=== PATIENT | male | born 1990 | race Caucasian/White ===

== ENCOUNTER 2020-07-09 03:20 | Outpatient (CLI) | payer OTHER, SELFPAY ==
[2020-07-10 14:30] LABS: COVID-19 RT-PCR UVMMC Result Negative (Negative)
== END 2020-07-09 03:21 | disposition home or self-care (01) ==
LOC: LBO 03:21
PROVIDERS: PCP Nurse Practitioner Family; Visit Provider Nurse Practitioner Family
DX: Z20.822 Contact with and (suspected) exposure to COVID-19 (principal)
CPT/HCPCS: U0003

== ENCOUNTER 2020-11-14 17:03 | Outpatient (REF) | payer OTHER, SELFPAY ==
[2020-11-16 14:39] LABS: COVID-19 RT-PCR UVMMC Result Negative (Negative)
== END 2020-11-14 17:04 | disposition home or self-care (01) ==
LOC: NCHCN 17:03
PROVIDERS: PCP Nurse Practitioner Family; Visit Provider Nurse Practitioner Family
DX: Z20.822 Contact with and (suspected) exposure to COVID-19 (principal); J06.9 Acute upper respiratory infection, unspecified
CPT/HCPCS: U0003

== ENCOUNTER 2020-11-14 17:29 | Emergency (ER) | payer OTHER, SELFPAY ==
[2020-11-14 17:36] VITALS: BP 137/88; PULSE 90; RESP 18; TEMP 37.1; O2SAT 98
--- NOTE | 2020-11-14 18:04 | DI.RAD_ITS ---
Exam(s) XR PORTABLE CHEST AP EXAM: XR PORTABLE CHEST AP CLINICAL HISTORY: cough, pui. TECHNIQUE: 2D digital imaging was performed. COMPARISON: No exams were available for comparison FINDINGS: Heart size is normal. The mediastinum is not widened. Lungs are clear. No infiltrates nor obvious pleural effusions. IMPRESSION: No acute pulmonary findings on this single AP portable view of the chest. DATA REPOSITORY: RADIATION DOSE DELIVERED: All CT scans at this facility use at least one of these dose optimization techniques: automated exposure control; mA and/or kV adjustment per patient size (includes targeted e xams where dose is matched to clinical indication); or iterative reconstruction.
--- NOTE | 2020-11-14 18:21 | DI.VRAD_ITS ---
PROCEDURE INFORMATION: Exam: XR Chest Exam date and time: 11/14/2020 5:39 PM Age: 30 years old Clinical indication: Cough TECHNIQUE: Imaging protocol: XR of the chest. Views: 1 view. COMPARISON: No relevant prior studies available. FINDINGS: Lungs: Unremarkable. No consolidation. Pleural spaces: Unremarkable. No pleural effusion. No pneumothorax. Heart/Mediastinum: Unremarkable. No cardiomegaly. Bones/joints: Unremarkable. IMPRESSION: No acute findings. Dictated and Authenticated by: Yo Miller MD. Ordering:BJ Frederick MD
--- NOTE | 2020-11-14 18:27 | ED.GENADUL_ITS ---
Discharge Plan Disposition Patient Disposition: HOME Condition: Stable Discharge Details Clinical Impression: URI (upper respiratory infection), Asthma Primary Care Provider: Nisha Preston ED Provider: Otoniel Ceballos Home Meds and New Rx's Prescriptions: No Action No Known Home Meds RF: 0 Discharge Instructions Instructions: Albuterol (By breathing), Asthma (ED), Upper Respiratory Infection (ED) Additional Instructions: Please use albuterol inhaler 2 puffs every 4 hours as needed for wheeze or shortness of breath. Take prednisone as prescribed, your next dose is tomorrow. Maintain quarantine until your Covid test is negative. Please contact your primary care physician to arrange follow-up. Return to the ER for any worsening or new concerning symptoms. Referrals: Nisha Preston [Primary Care Provider] - Medical Decision Making 30-year-old male here with cough and shortness of breath of the past couple days. Patient was seen in [facility] and received albuterol neb and prednisone 60 mg and is feeling better. He still has mild wheeze. Patient is saturating well in no respiratory distress. Suspect reactive airway disease with new onset asthma related to recent exposure to find particulate from [employer] in combination with an upper respiratory tract infection. Patient was sent here from [facility] for chest x-ray. Chest x-ray was reviewed and interpreted by me and there is no signs of pneumonia, radiology interprets as no acute findings. Patient was provided albuterol inhaler and spacer as pharmacy is currently closed. He was instructed to take prednisone as prescribed for tomorrow. He was instructed to follow-up with his primary care physician and maintain quarantine until his Covid testing is negative. Covid testing was performed at [facility]. Usual customary discharge instructions otherwise reviewed with patient. HPI General Mode of arrival: ambulatory . Date/Time Provider Initiated Documentation: 11/14/20 17:38 . Limitations to Documentation: no limitations . Information obtained by: patient . HPI Narrative: 30-year-old male sent from [facility] for chest x-ray. Patient presented to [facility] with shortness of breath and cough. Patient notes he has had cough for the past couple days and has had chest tightness with shortness of breath today. He denies associated fever. Patient received albuterol nebs and 60 mg of prednisone at [facility]. He notes he is feeling much better. Patient has no history of asthma but he does note familial history. Patient works outside and notes he has been exposed to their pollution with recent fine particular from [place]. Patient is vaccinated fully against Covid. No known Covid exposure. Related Data Home Medications Medication Instructions Recorded Confirmed Unknown [No Known Home Meds] 11/14/20 11/14/20 Allergies Allergy/AdvReac Type Severity Reaction Status Date / Time No Known Allergies Allergy Unverified 11/14/20 17:35 General Stated Complaint: RespSymp VIKKI: 4 Review of Systems All systems reviewed & are unremarkable except as noted in HPI and below Constitutional Constitutional: Denies fever(s) Respiratory Respiratory: Reports as per HPI [facility] Social History Smoking/Tobacco Use Status: Never Smoking risk assessment performed?: Yes Substance use type: does not use Do you feel safe at home: Yes Do you feel safe in your relationship?: Yes Exam Const General: cooperative and no acute distress HENMT Head: normocephalic and atraumatic Mouth: moist mucous membranes Eyes Conjunctivae: normal conjunctivae Sclera: normal sclerae Neck Neck: trachea midline and supple Resp Auscultation: no rales, rhonchi and wheezes expiratory wheezes (mild) Cardio Rate: regular rate and not tachycardic Rhythm: regular rhythm GI Palpation: soft, not firm, no guarding, no masses, not rigid and nontender Skin General skin exam: no rashes or lesions noted Neuro General: patient alert, patient awake, patient oriented x3 and tone normal Extrem General: no edema Psych Appearance: grossly normal Mental Status: mental status grossly normal Course Vital Signs Vital signs: Vital Signs Temperature 37.1 C 11/14/20 17:36 Pulse 90 11/14/20 17:36 Respiratory Rate 18 11/14/20 17:36 Blood Pressure 137/88 11/14/20 17:36 Pulse Oximetry 98 11/14/20 17:36 Temperature 37.1 C 11/14/20 17:36 Temperature Source Oral 11/14/20 17:36 Pulse 90 11/14/20 17:36 Respiratory Rate 18 11/14/20 17:36 Respiratory Effort 11/14/20 17:42 Blood Pressure 137/88 11/14/20 17:36 Pulse Oximetry 98 11/14/20 17:36 Oxygen Delivery Method Room Air 11/14/20 17:36 Oxygen Flow Rate 0 11/14/20 17:36 Pain Level 2 11/14/20 17:36 Comment 11/14/20 17:36
[2020-11-14] MEDS: Inhaler, Assist Device 1 EACH MC (18:38)
[2020-11-14] MEDS: Albuterol HFA 8 GM 60 PUFF INH IH (18:38)
== END 2020-11-14 18:38 | disposition home or self-care (01) ==
PROVIDERS: Emergency Provider Student in an Organized Health Care Education/Training Program; PCP Nurse Practitioner Family
DX: J06.9 Acute upper respiratory infection, unspecified (principal); J45.998 Other asthma
CPT/HCPCS: 99283; 71045

== ENCOUNTER 2023-01-24 16:14 | Emergency (ER) | payer OTHER, SELFPAY ==
--- NOTE | 2023-01-24 16:15 | DI.RAD_ITS ---
Exam(s) XR FINGER LT MIDDLE EXAM: XR FINGER LT MIDDLE EXAM DATE/TIME: CLINICAL HISTORY: Trauma. TECHNIQUE: 2D digital imaging was performed of the left finger. Three views were obtained. PA/AP, oblique, and lateral views were obtained. COMPARISON: None. FINDINGS: BONES: No acute fracture is present. No bony destructive lesion is seen. JOINTS: No dislocation is present. SOFT TISSUE: Normal. IMPRESSION: No evidence of acute fracture or dislocation. DATA REPOSITORY: RADIATION DOSE DELIVERED:
[2023-01-24 16:18] VITALS: BP 138/91; PULSE 75; RESP 18; TEMP 37; O2SAT 100
--- NOTE | 2023-01-24 16:28 | ED.GENADUL_ITS ---
Discharge Plan Disposition Patient Disposition: Home Condition: Stable Discharge Details Clinical Impression: Crush injury to finger Primary Care Provider: Unknown,Unknown ED Provider: Clarissa Minaya Home Meds and New Rx's Prescriptions: No Action No Known Home Meds Discharge Instructions Instructions: Crush Injury (ED) Additional Instructions: Keep dressing on. Tomorrow wash under running soap and water. Watch for signs of infection including increased redness swelling drainage or red streaks. Follow up with primary care provider in 3-5 days. Return to ED sooner if any worsening or concerns. Increase oral fluids. Please take Tylenol or Ibuprofen with food every 4-6 hours as needed for pain and swelling. Medical Decision Making 32 year old male presents to the ED with cc of left middle finger laceration and crush injury. Patient was feeding wood into a wood splitter and his finger cought caight in between two pieces of wood. Has a laceration noted to his nail possibly involving his nailbed. He does have distal CMS intact. No other injuries noted. Digital block performed for patient comfort for wound cleaning. Wound cleaned with chlorahexadine , Zeroform dressing applied and compression bandage. Bleeding controlled, discussed home care and patient given dressing supplies. This text was generated using [employer] dictation system, please disregard any oddities of phrase or misspellings. HPI General Mode of arrival: ambulatory . Date/Time Provider Initiated Documentation: 01/24/23 16:22 . Limitations to Documentation: no limitations . Information obtained by: patient, RN notes reviewed and old records reviewed . HPI Narrative: 32 year old male presents to the ED with cc of left middle finger laceration and crush injury. Patient was feeding wood into a wood splitter and his finger cought caight in between two pieces of wood. Has a laceration noted to his nail possibly involving his nailbed. He does have distal CMS intact. No other injuries noted. Related Data Home Medications Medication Instructions Recorded Confirmed Unknown [No Known Home Meds] 11/14/20 01/24/23 Allergies Allergy/AdvReac Type Severity Reaction Status Date / Time No Known Allergies Allergy Unverified 01/24/23 16:22 General Stated Complaint: Orthopedic VIKKI: 4 Review of Systems All systems reviewed & are unremarkable except as noted in HPI and below Integumentary/Breasts Skin/Breast: Reports as per HPI and Reports wounds (Left middle finger) PFSH All Active Problems (Updated 01/24/23 @ 17:16 by Clarissa Minaya NP) URI (upper respiratory infection) (Acute) Asthma (Chronic) Crush injury to finger (Acute) Social History Smoking/Tobacco Use Status: Never Smoking risk assessment performed?: Yes Drug use: Daily Substance use type: marijuana Do you feel safe at home: Yes Do you feel safe in your relationship?: Yes Exam Extrem Left upper extremity: hand Details: normal capillary refill, neurosensory exam normal and laceration 3rd digit dorsal aspect distal Details: irregular Hand/finger images: 1. Crush injury/laceration 2. Laceration left middle finger Course Vital Signs Vital signs: Vital Signs Temperature 37.0 C 01/24/23 16:18 Pulse 75 01/24/23 16:18 Respiratory Rate 18 01/24/23 16:18 Blood Pressure 138/91 H 01/24/23 16:18 Pulse Oximetry 100 01/24/23 16:18 Temperature 37.0 C 01/24/23 16:18 Pulse 75 01/24/23 16:18 Respiratory Rate 18 01/24/23 16:18 Respiratory Effort Normal 01/24/23 16:23 Blood Pressure 138/91 H 01/24/23 16:18 Blood Pressure Position Sitting 01/24/23 16:18 Pulse Oximetry 100 01/24/23 16:18 Oxygen Delivery Method Room Air 01/24/23 16:18 Oxygen Flow Rate 0 01/24/23 16:18 Pain Level 8 01/24/23 16:18 Procedures Nerve Block Nerve Block 1: Time out performed: No Local Anesthetic: Lidocaine 1% and Bupivicaine 0.5% Side: left Nerve Blocks: digital (4 sided ring block) Procedure Successful: Yes Patient Tolerated Procedure: well and no complications Complications: none PAWSS Have you Been Recently Intoxicated or Drunk Within the Last 30 days?: Yes Have you Ever Experienced Previous Episodes of Alcohol Withdrawal?: No Have you ever Experienced Withdrawal Seizures?: No Have you ever Experienced Delirium Tremens(DT)s?: No Have you ever undergone Alcohol Rehabilitation Treatment (i.e, inpt ot outpatient treatment programs)?: No Have you ever Experienced Blackouts?: No Have you ever Combined Alcohol with other Downers within the last 90 days?: No Have you ever Combined Alcohol with any other Substance of Abuse during the last 90 days?: Yes Result: 3
--- NOTE | 2023-01-24 17:13 | DI.VRAD_ITS ---
PROCEDURE INFORMATION: Exam: XR Left Finger(s) Exam date and time: 01/24/2023 4:45 PM Age: 32 years old Clinical indication: Other: Trauma TECHNIQUE: Imaging protocol: Radiologic exam of the left fingers. Views: Minimum 2 views. COMPARISON: US SOFT TISSUE EXTREMITY 07/31/2021 7:43 AM FINDINGS: Bones/joints: Normal. Soft tissues: Normal. IMPRESSION: No acute findings. Dictated and Authenticated by: Sathya Mckinney MD. Ordering:MIGNON Romo MD
== END 2023-01-24 17:32 | disposition home or self-care (01) ==
PROVIDERS: Emergency Provider Registered Nurse Emergency
DX: S67.193A Crushing injury of left middle finger, initial encounter (principal); S61.313A Laceration without foreign body of left middle finger with damage to nail, initial encounter; W23.0XXA Caught, crushed, jammed, or pinched between moving objects, initial encounter; Y93.89 Activity, other specified; Y92.89 Other specified places as the place of occurrence of the external cause; Y99.9 Unspecified external cause status; Z23 Encounter for immunization
CPT/HCPCS: 90472; 99283; 73140

== ENCOUNTER 2023-05-13 16:28 | Outpatient (REF) | payer OTHER, SELFPAY ==
[2023-05-13 15:33] LABS: ALT 33 U/L (16-63); AST 37 U/L (15-37); Albumin 4.2 g/dL (3.4-5.0); Alkaline Phosphatase 60 U/L (46-116); Anion Gap 8.9 mmol/L (3-11); BUN 16 mg/dL (7-18); Bilirubin, Total 0.6 mg/dL (0.2-1.0); CO2 30.1 mmol/L (21.0-32.0); CREATININE 0.9 mg/dL (0.70-1.30); Calcium 8.9 mg/dL (8.5-10.1); Chloride 102 mmol/L (98-107); Cholesterol 148 mg/dL (<200); Estimated GFR 117.83 (mL/min/1.73m2); Glucose 93 mg/dL (74-106); HDL Cholesterol 85 mg/dL (40-60); Potassium 4.3 mmol/L (3.5-5.1); Sodium 141 mmol/L (136-145); Total Protein 7.6 g/dL (6.4-8.2)
[2023-05-13 15:34] LABS: Triglyceride <25 mg/dL (<150)
[2023-05-13 16:14] LABS: LDL CHOLESTEROL 54 mg/dL (<100)
[2023-05-14 09:08] LABS: Hepatitis C Ab w Rflx HCV PCR Negative (Negative)
[2023-05-14 09:17] LABS: HIV-1/2 Ag & Ab Screen Negative (Negative)
== END 2023-05-13 16:29 | disposition home or self-care (01) ==
LOC: NCHCN 16:28
PROVIDERS: Visit Provider Nurse Practitioner Family
DX: Z00.00 Encounter for general adult medical examination without abnormal findings (principal); Z13.220 Encounter for screening for lipoid disorders; Z11.4 Encounter for screening for human immunodeficiency virus [HIV]; Z11.59 Encounter for screening for other viral diseases; Z13.228 Encounter for screening for other metabolic disorders
CPT/HCPCS: 80053; 80061; 83721; 86803; 87389

== ENCOUNTER 2024-01-03 12:04 | Emergency (ER) | payer OTHER, SELFPAY ==
[2024-01-03 12:05] VITALS: BP 133/83; PULSE 79; RESP 16; TEMP 36.7; O2SAT 98
--- NOTE | 2024-01-03 13:21 | ED.GENADUL_ITS ---
Discharge Plan Disposition Patient Disposition: Home Condition: Stable Discharge Details Chief Complaint: Laceration Clinical Impression: Laceration of left index finger, Contact with chainsaw as cause of accidental injury Primary Care Provider: Unknown,Unknown ED Provider: Otoniel Ceballos Home Meds and New Rx's Prescriptions: No Action No Known Home Meds Discharge Instructions Instructions: Laceration Repair With Stitches ED Additional Instructions: Please take ibuprofen over the counter. Take 600mg by mouth every 6 hours as needed for pain. Keep splint intact for the next few days. Sutures will need to be removed in 12 to 14 days. Please follow-up with your doctor return to the Emergency Department for suture removal. Change dressing daily and monitor for signs of infection including increased redness, warmth, drainage, pain. Return to the ER immediately for any worsening or new concerning symptoms. HPI General Mode of arrival: ambulatory . Date/Time Provider Initiated Documentation: 01/03/24 12:05 . Limitations to Documentation: no limitations . Information obtained by: patient . HPI Narrative: 33-year-old male presents with chief complaint of finger laceration. Patient notes he was using his chainsaw and accidentally sawed through his glove into his left second digit. Wound has been bleeding. Bleeding improved with pressure. He did wash the room prior to arrival. Tetanus up-to-date. Related Data Home Medications ?Medication ?Instructions ?Recorded ?Confirmed Unknown [No Known Home Meds] 11/14/20 01/03/24 Allergies Allergy/AdvReac Type Severity Reaction Status Date / Time No Known Allergies Allergy Unverified 01/03/24 12:08 General Stated Complaint: Laceration VIKKI: 4 Review of Systems Integumentary/Breasts Skin/Breast: Reports as per HPI Exam Skin Trauma: laceration (Left second digit dorsal 3 cm) Neuro Other: Distal left second digit sensation intact to light touch and to point discrimination Extrem Left upper extremity: hand Details: neuromotor exam normal, neurosensory exam normal, tendon exam normal and normal ROM of fingers Course Vital Signs Vital signs: Vital Signs Temperature 36.7 C 01/03/24 12:05 Pulse 79 01/03/24 12:05 Respiratory Rate 16 01/03/24 12:05 Blood Pressure 133/83 01/03/24 12:05 Pulse Oximetry 98 01/03/24 12:05 Temperature 36.7 C 01/03/24 12:05 Pulse 79 01/03/24 12:05 Respiratory Rate 16 01/03/24 12:05 Respiratory Effort Normal 01/03/24 12:09 Blood Pressure 133/83 01/03/24 12:05 Pulse Oximetry 98 01/03/24 12:05 Oxygen Delivery Method Room Air 01/03/24 12:05 Oxygen Flow Rate 0 01/03/24 12:05 Pain Level 2 01/03/24 12:05 Procedures Laceration Laceration 1: Site: hand Side (If applicable): left Size (cm): 3 Description: linear and irregular Depth: simple, single layer Local anesthetic: Lidocaine 2% Pre-repair: wound explored, irrigated extensively and deep structures intact Skin layer closed with: other (prolene) Size (cm): 5-0 Number of sutures: 7 Technique: simple, interrupted Nerve Block Nerve Block 1: Time out performed: Yes Local Anesthetic: Lidocaine 2% Amount of anesthesia used (mL): 5 Side: left Nerve Blocks: digital Procedure Successful: Yes Patient Tolerated Procedure: well and no complications Complications: none Medical Decision Making 33-year-old male here with accidental chainsaw injury resulting in laceration to his dorsal left second digit. Patient neurologically intact distal to injury. Tetanus immunization up-to-date last booster 2022. Digital block of the left second digit was performed after verbal consent provided. Primary closure of the wound was performed. Hemostasis achieved and wound borders well-approximated. Sterile dressing was applied to the wound. Volar splint applied. Usual and customary discharge instructions were reviewed. Quality:[facility] Health Related Social Needs: No Data to Display [facility] All Active Problems (Updated 01/03/24 @ 13:25 by Otoniel Ceballos MD) Contact with chainsaw as cause of accidental injury (Acute) Laceration of left index finger (Acute) Asthma (Chronic) URI (upper respiratory infection) (Acute) Social History Smoking/Tobacco Use Status: Never Smoking risk assessment performed?: Yes Drug use: Daily Substance use type: marijuana Housing: house Do you feel safe at home: Yes Do you feel safe in your relationship?: Yes
[2024-01-03 13:31] VITALS: BP 133/83; PULSE 70; RESP 16; TEMP 36.7; O2SAT 98
[2024-01-03] MEDS: Lidocaine/Epinephri/Tetracaine Topical Gel 3 ML TP (13:33)
== END 2024-01-03 13:33 | disposition home or self-care (01) ==
PROVIDERS: Emergency Provider Student in an Organized Health Care Education/Training Program
DX: S61.211A Laceration without foreign body of left index finger without damage to nail, initial encounter (principal); W29.3XXA Contact with powered garden and outdoor hand tools and machinery, initial encounter
CPT/HCPCS: 12002

== ENCOUNTER 2024-06-04 09:47 | Emergency (ER) | payer OTHER, SELFPAY ==
[2024-06-04 09:51] VITALS: BP 142/103; PULSE 76; RESP 14; TEMP 36.3; O2SAT 100
--- NOTE | 2024-06-04 10:05 | ED.GENADUL_ITS ---
Discharge Plan Disposition Patient Disposition: Home Condition: Stable Discharge Details Clinical Impression: Acute right otitis media Primary Care Provider: Unknown,Unknown ED Provider: Clarissa Minaya Home Meds and New Rx's Prescriptions: New amoxicillin-pot clavulanate 875-125 mg tablet 1 tab PO BID 7 Days Qty: 14 0RF Discharge Instructions Instructions: Ear Infection ED Additional Instructions: Take the antibiotics as prescribed with yogurt or probiotic. Please take Tylenol or Ibuprofen with food every 4-6 hours as needed for pain and swelling. Follow up with primary care provider in 3-5 days. Return to ED sooner if any worsening or concerns. Negative rapid swab for flu and COVID at this time. Referrals: Primary Care Provider [Outside] - 1 week Discharge Data Discharge Date/Time-TO BE ENTERED AT DEPARTURE: 06/04/24 10:56 HPI General Mode of arrival: ambulatory . Date/Time Provider Initiated Documentation: 06/04/24 09:58 . Limitations to Documentation: no limitations . Information obtained by: patient, RN notes reviewed and old records reviewed . HPI Narrative: 33-year-old male presents to the ER with chief complaint of right ear pain which began this morning. He also notes URI type symptoms for the last week. He does have a mild expiratory wheeze on the left lower lobe. Pain radiates to his right jaw. He does have erythema noted on exam to his right TM left TM is within normal limits. Posterior oropharynx slightly erythemic no exudate noted. Related Data Home Medications ?Medication ?Instructions ?Recorded ?Confirmed amoxicillin 875 mg-potassium 1 tab PO BID 7 days #14 tabs 06/04/24 clavulanate 125 mg tablet Previous Rx's ?Medication ?Instructions ?Recorded amoxicillin 875 mg-potassium 1 tab PO BID 7 days #14 tabs 06/04/24 clavulanate 125 mg tablet Allergies Allergy/AdvReac Type Severity Reaction Status Date / Time No Known Allergies Allergy Unverified 06/04/24 09:57 General Stated Complaint: EarProblem VIKKI: 4 Review of Systems All systems reviewed & are unremarkable except as noted in HPI and below ENT Ears, Nose, Mouth, and Throat: Reports as per HPI and Reports otalgia Exam Narrative Exam Narrative: Constitutional: Alert and oriented x3. Appears stated age. Normal body habitus. Head: Normocephalic, no trauma. Eyes: Pupils PERRL, Red reflex noted, EOM's intact. Eyelids symmetrical without lesions, discharge, or swelling. ENT: Right TM erythemic, left within normal limits external ear normal to inspection, no mastoid TTP, swelling, or erythema, Nasal turbinates WNL, no nasal discharge. Normal dentition, Posterior pharynx mildly erythemic,, no exudate. Chest: RRR, Normal S1, S2, distal pulses intact. Resp: Lungs clear to auscultation bilaterally, no rales, or rhonchi. Mild expiratory wheeze left side, Course Vital Signs Vital signs: Vital Signs Temperature 36.3 C L 06/04/24 09:51 Pulse 76 06/04/24 09:51 Respiratory Rate 14 06/04/24 09:51 Blood Pressure 142/103 H 06/04/24 09:51 Pulse Oximetry 100 06/04/24 09:51 Temperature 36.3 C L 06/04/24 09:51 Temperature Source Tympanic 06/04/24 09:51 Pulse 76 06/04/24 09:51 Respiratory Rate 14 06/04/24 09:51 Blood Pressure 142/103 H 06/04/24 09:51 Blood Pressure Position Sitting 06/04/24 09:51 Pulse Oximetry 100 06/04/24 09:51 Oxygen Delivery Method Room Air 06/04/24 09:51 Oxygen Flow Rate 0 06/04/24 09:51 Pain Level 7 06/04/24 09:51 Comment constant pressure 06/04/24 09:51 Medical Decision Making 33-year-old male presents to the ER with chief complaint of right ear pain which began this morning. He also notes URI type symptoms for the last week. He does have a mild expiratory wheeze on the left lower lobe. Pain radiates to his right jaw. He does have erythema noted on exam to his right TM left TM is within normal limits. Rapid flu and COVID swab ordered, Augmentin and ibuprofen. Right otitis media, negative rapid flu and COVID swab. Patient discharged with antibiotic, instructed take Tylenol ibuprofen and follow-up with PCP if needed. This text was generated using [employer] system, please disregard any oddities of phrase or misspellings. Quality:SDOH Health Related Social Needs: No Data to Display PFSH All Active Problems (Updated 06/04/24 @ 10:26 by Clarissa Minaya NP) Acute right otitis media (Acute) Asthma (Chronic) URI (upper respiratory infection) (Acute) Social History Smoking/Tobacco Use Status: Never Smoking risk assessment performed?: Yes Alcohol Intake: current Alcohol Intake frequency: 3 or more drinks per day Alcohol type: beer Drug use: Daily Substance use type: marijuana Housing: house Do you feel safe at home: Yes Do you feel safe in your relationship?: Yes PAWSS Have you Been Recently Intoxicated or Drunk Within the Last 30 days?: Yes Have you Ever Experienced Previous Episodes of Alcohol Withdrawal?: No Have you ever Experienced Withdrawal Seizures?: No Have you ever Experienced Delirium Tremens(DT)s?: No Have you ever undergone Alcohol Rehabilitation Treatment (i.e, inpt ot outpatient treatment programs)?: No Have you ever Experienced Blackouts?: No Have you ever Combined Alcohol with other Downers within the last 90 days?: No Have you ever Combined Alcohol with any other Substance of Abuse during the last 90 days?: No Positive Blood Alcohol level on Presentation? [PCS.BAL]: Unable to Obtain Evidence of Increased Autonomic Activity (i.e. HR>120, tremor, sweating, agitation, nausea)?: No Result: 1
[2024-06-04 10:10] VITALS: BP 142/103; PULSE 76; RESP 14; TEMP 36.3; O2SAT 100
[2024-06-04] MEDS: Amoxicillin 875/Clav. 125 TAB PO (10:20)
[2024-06-04] MEDS: Ibuprofen 600 MG TAB PO (10:20)
--- OUTSIDE RECORDS SUMMARY | 2024-06-04 10:37 | XMS_ITS | Encounter Summary ---
Author Organization [facility] Address [address] [place] [address] Care Team Providers Care Modeling Director Name Role Phone Ruiz Morley MD Primary Care Provider Un available Reason for Visit * Reason Comments Hand Pain right 3rd finger doi /dos 7.13.10 Encounter Details Date Type Department Care Team (Late st Contact Info) Description 07/08/2010 13:30 EDT Office Visit [facility] Upper Extrem[facility] [place] [address] Lottie Maravilla MD [address] [place] [id number] Amputation finger (Primary Dx) Social History Tobacco Use Types Packs/Day Years Used Date Smoking Tobacco: Never Alcohol Use Standard Drinks/Week Comments No 0 (1 standard drink = 0.6 oz pur e alcohol) Sex and Gender Information Value Date Recorded Sex Assigned at Not on file Legal Sex Male 18:48 EST Gender Identity Not on file Sexual Orientation Not on file documented as of this encounter Last Filed Vital Signs Vital Sign Reading Time Taken Comments Blood Pressure - - Pulse - - Temperature - - Respiratory Rate - - Oxygen Saturation - - Inhaled Oxygen Concentration - - Weight 74.8 kg (165 lb) 07/08/2010 1336 EDT Height 177.8 cm (5' 10) 07/08/2010 1336 EDT Body Mass Index 23.68 07/08/2010 1336 EDT Body Mass Index Percentile 70.92% 07/08/2010 133 6 EDT Growth Chart: CDC (Boys, 2-2 0 Years) documented in this encounter Progress Notes * Lottie Maravilla MD - 08/03/2010 1719 EDT This office note has been dictated. 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 HISTORY OF PRESENT ILLNESS: Daryl is a pleasant 20-year-old male accompanied on today's visit with both his parents for evaluation of his right long finger. He was referred to me by physician's patient clerical assistant, Charlie Parisi, who has followed him since the time of his initial injury on October 30, 2009. Gerriinapparently caught his right long finger in a wood splitter. He was treated with a revision amputation in the emergency room. He was doing well until 06/12/2010 when he returned back to the physician'sassistant for reevaluation of his right long finger. He had noted that he had a remnant of nail, which had begun to grow back, as well as pain over the tip of his distal finger with any type of prolon ged pressure, more on the radial side than the ulnar. In addition, he endorses cold intolerance when directly asked about it. He denies any paresthesias. He reports that he is able to function and use the hand with all activities. He completed a DASH questionnaire today, which demonstrated no difficulty with the majority of his functional activities; however, he endorses mild difficulty carrying any heavy object over 10 pounds, using a knife to cut food or some recreational activities due to the tenderness over the tip of his finger. He denies any infection or erythema. He presents to determine what if anything can be done to resolve his residual nail spike and to address his residual tender ness. PAST MEDICAL AND SURGICAL HISTORY: Negative for chronic disease. Notable for the emergency room revision amputation in 10/2009 following injury with a wood splitter. SOCIAL HISTORY: The patient states that he is Senior in high school. He lives with both his parents. He denies any alcohol or tobacco use. CURRENT MEDICATIONS: Denies. ALLERGIES: No known drug allergies. The patient denies any latex or environmental allergens. REVIEW OF SYSTEMS: A complete 12-point review of systems was obtained on the new patient self-assessment form. This form was reviewed with the patient. It was previously scanned in the medical recordand is dated October 2009. It is otherwise noncontributory. FAMILY HISTORY: Notable for arthritis. OBJECTIVE: Daryl is a well-appearing, 20-year-old male in no apparent distress. He is alert and oriented x4 with appropriate affect throughout the course of the examination. He is accompanied on today's visit with both his parents. Vital signs on today's visit show a weight of 165 pounds, height of70 inches and a BMI of 23.6. He has a pain score of 0/10. He is able to ambulate without a need for assistive device or evidence of gait deviation. He has full pain-free active range of motion of thecervical spine with no midline tenderness to palpation. He has full pain-free active range of motion of bilateral shoulders, elbows, wrists and left hand. Focal examination of the patient's right hand demonstrates a long finger amputation. The skin is well healed. He does have a nail spike remnant on the radial aspect of the long finger. This is somewhat tender to palpation. In addition, he does have focal tenderness to palpation over the very pad. There is a negative Tinel's with percussion toeither the radial or ulnar neurovascular bundles. There is no erythema around the nail spike or thepad of the finger. The incision line is well healed and mobile. The very tip of the finger; however, does have limited pad over it and it is clear that it is likely that with some fat atrophy, which has occurred in the area, this could lead to pressure on the underlying bone. There is no evidence of a dog ear. Sensation is grossly intact to the tip of the finger. The patient reports that this is approximately 80% of that, which is to that compared to light touch of his surrounding digits, which are unaffected from injury. He has a thumb, which he is able to oppose to the base of his small finger. He is able to oppose all digits including his long finger to the pad of his finger with a complete director of restaurants. IMAGING: X-rays of the patient's right long finger were obtained on 06/12/2010. This image was reviewed. There is no evidence of osteomyelitis. There is evidence of amputation of the distal phalanx. The middle phalanx had been cut at the level of the condyles. These are somewhat square with the possibility of tenderness arising from the edge of the middle phalanx bone. There is no evidence of softtissue swelling. The PIP joint and MCP joints are unaffected and appear normal in alignment and appearance. IMPRESSION AND PLAN: 1. Nail spike, right long finger distal amputation site. 2. Squared middle phalanx on radiographic imaging, which may be contributing to tenderness over thetip of the long finger. A long discussion was held with Mr Lawrence regarding his injury and radiographic as well as physical examination today. I think it is reasonable based on his goals and tenderness to plan for surgicalexcision of the nail spike. In addition, given the radiographic images of his middle phalanx it is quite possible that this squaring of the middle phalanx may be causing some tenderness to palpation.I expressed to the patient that his cold intolerance would not be addressed with surgical intervention and likely as sequela from the nerve injury, which was incurred at the time of his amputation. Nate not believe that his symptoms are consistent with a neuroma based on a negative Tinel's on either of the neurovascular bundles and his absence to paresthesias. Daryl expressed that he is interested in a summer job. We discussed appropriate timing of intervention and necessary rehabilitation and healing time. I feel that based upon his interest we will try to accommodate him as soon as possibleprior to his summer work schedule. All questions were answered and Daryl and his family are in agreement with the above plan. I will have him meet with the receptionist scheduler today to find a time which is mutually convenient. Electronically Signed by Lottie Maravilla MD 08/28/2010 07:25 Lottie Maravilla MD - Lottie Maravilla MD - Job ID: SM Doc ID: [id number] Ext Doc ID: [id number] cc: MD Charlie Rice PA-C documented in this encounter Care Teams Modeling Director Relationship Specialty Start Date End Date Ruiz Morley MD PCP - General 07/19/09 documented as of this encounter
--- OUTSIDE RECORDS SUMMARY | 2024-06-04 10:37 | XMS_ITS | Encounter Summary ---
Author Organization [facility] Address [address] [place] [address] Care Team Providers Care Laborer [employer]crete [employer] Name Role Phone Ruiz Morley MD Primary Care Provider Un available Encounter Details Date Type Department Care Team (Late st Contact Info) Description 05/13/2023 Lab Requisition [facility] Pathology & Laboratory Medicine - [address] [address] Outr Resulting Lab, Provider Social History Tobacco Use Types Packs/Day Years Used Date Smoking Tobacco: Never Alcohol Use Standard Drinks/Week Comments No 0 (1 standard drink = 0.6 oz pur e alcohol) Sex and Gender Information Value Date Recorded Sex Assigned at Not on file Legal Sex Male 18:48 EST Gender Identity Not on file Sexual Orientation Not on file documented as of this encounter Plan of Treatment Not on file documented as of this encounter Procedures Procedure Name Priority Date/Time Associated Diagnosis Comments HIV 1/2 ANTIGEN AND ANTIBODY, 4TH GENERATION Routine 05/13/2023 11:15 EST documented in this encounter Results * HIV 1/2 ANTIGEN AND ANTIBODY, 4TH GENERATION (05/13/2023 11:15 EST) HIV 1 and 2 Antibody/p24 Antigen, 4th Generation Negative Negative 05/14/2023 9:11 EST [facility] Comment:If acute HIV-1 infec tion is suspected in a high risk patient, submit plasma specimen for HIV-1 RNA quantitation test. Blood VENOUS BLOOD / Unknown 05/13/2023 11:15 EST 05/13/2023 21:21 EST Narrative [facility] - 05/14/2023 9:11 EST Fourth Generation assay performed on the [employer] XPT. us Provider Outr Resulting Lab IMMUNOLOGY AND SEROL OGY ORDERABLES Final Result [facility] [address] [place] [address] documented in this encounter Visit Diagnoses Not on filedocumented in this encounter Care Teams Laborer Concrete Plant Relationship Specialty Start Date End Date Ruiz Morley MD PCP - General 07/19/09 documented as of this encounter
--- OUTSIDE RECORDS SUMMARY | 2024-06-04 10:37 | XMS_ITS | Clinical Summary ---
Author Organization [facility] Address [address] [place] [address] Care Team Providers Care Physical Therapy Assistant Instructor Name Role Phone Ruiz Morley MD Primary Care Provider Un available Allergies No known active allergies Medications IBUPROFEN (ADVIL ORAL) Take by mouth as needed. Active Active Problems Problem Noted Date Diagnosed Date Traumatic amputation of othe r finger(s) (complete) (partial), without mention of complication 01/09/2010 Family History Medical History Relation Comments Anesthesia Problem Neg Hx Broken Bones Neg Hx Cancer Neg Hx Clotting Disorder Neg Hx Collagen Disease Neg Hx Diabetes Neg Hx Dislocations Neg Hx Osteoporosis Neg Hx Rheumatologic Disease Neg Hx Scoliosis Neg Hx Severe Sprains Neg Hx Social History Tobacco Use Types Packs/Day Years Used Date Smoking Tobacco: Never Alcohol Use Standard Drinks/Week Comments No 0 (1 standard drink = 0.6 oz pur e alcohol) Sex and Gender Information Value Date Recorded Sex Assigned at Not on file Legal Sex Male 18:48 EST Gender Identity Not on file Sexual Orientation Not on file Obstetrics History Last Filed Vital Signs Vital Sign Reading Time Taken Comments Blood Pressure 115/71 10/30/2009 1249 EDT Pulse 64 10/30/2009 1249 EDT Temperature 36 ??C (96.8 ??F) 10/30/2009 1249 EDT Respiratory Rate 16 10/30/2009 1249 EDT Oxygen Saturation 98% 10/30/2009 1249 EDT Inhaled Oxygen Concentration - - Weight 74.8 kg (165 lb) 07/08/2011 1324 EDT Height 180.3 cm (5' 11) 07/08/2011 1324 EDT Body Mass Index 23.01 07/08/2011 1324 EDT Plan of Treatment Health Maintenance Due Date Last Done Comments Hepatitis B Vaccine (1 of 3 - 19+ 3-dose series) 06/23 COVID-19 Vaccine (2023- season) 2023 Hepatitis C Screen Completed 05/13/2023 Procedures Procedure Name Priority Date/Time Associated Diagnosis Comments HEPATITIS C AB W REFLEX TO HCV RNA BY PCR Routine 05/13/2023 11:15 EST from Last 3 Months or Most Recently Relevant to Health Maintenance Results * HEPATITIS C AB W REFLEX TO HCV RNA BY PCR (05/13/2023 11:15 EST) Hep C Antibody Negative Negative 05/14/2023 9:03 EST [facility] Blood VENOUS BLOOD / Unknown 05/13/2023 11:15 EST 05/13/2023 21:21 EST us Provider Outr Resulting Lab CHEMISTRY & BLOOD GA S ORDERABLES Final Result [facility] [address] [place] [address] from Last 3 Months or Most Recently Relevant to Health Maintenance Insurance [facility] Care Teams Physical Therapy Assistant Instructor Relationship Specialty Start Date End Date Ruiz Morley MD PCP - General 07/19/09
--- OUTSIDE RECORDS SUMMARY | 2024-06-04 10:37 | XMS_ITS | Encounter Summary ---
Author Organization [facility] Address [address] [place] [address] Care Team Providers Care Hearing Specialist Name Role Phone Ruiz Morley MD Primary Care Provider Un available Reason for Visit * Reason Onset Date Comments Appointment Related 02/21/2011 Encounter Details Date Type Department Care Team (Late st Contact Info) Description 02/21/2011 Telephone [facility] Hand & Upper Extremity Program - [address] [place], [place] [id number] Katya Valverde LPN [address] [place] [address] Appointment Related Social History Tobacco Use Types Packs/Day Years Used Date Smoking Tobacco: Never Alcohol Use Standard Drinks/Week Comments No 0 (1 standard drink = 0.6 oz pur e alcohol) Sex and Gender Information Value Date Recorded Sex Assigned at Not on file Legal Sex Male 18:48 EST Gender Identity Not on file Sexual Orientation Not on file documented as of this encounter Miscellaneous Notes * Telephone Encounter - Katya Valverde LPN - 02/21/2011 1344 EDT Patient Education Topic: pre / post op care for amputation revision rt long finger Method: Handout and Verbal Taught to: Patient/Parents Barriers: None Outcomes: independent and verbalized understanding Signature:Katya Valverde LPN * Telephone Encounter - Katya Valverde LPN - 02/21/2011 1343 EDT [address] PATIENTS OF [address] ZBIGNIEW MARAVILLA Date of Surgery: 04/09/11 ?? [address] [address] Lora,the assembler surgical garment, will call you the day before surgery to let you know the time of your surgery and your arrival time. Any questions for her ,please call [phone] Pre-operative Phone Interview with Anesthesia Nurse: 04/07/11 @ 1-3 pm If changes in scheduling are needed call [phone] appointment [address] Maravilla or her associate 04/23/11 @ 10:00 At [address] [facility] Occupational/Hand Therapy appointment: To follow if needed [facility] To Prepare For Surgery A complete history and physical must be done with in 30 days prior to your surgery date. This physical can be done by your Primary Care provider or his/her associate. An EKG is part of this physical for males age 45 and above, and females age 55 and above. Refrain from taking the follow medications for 5-7 days before your surgery: Anti-Coagulants such as Plavix, Coumadin, Warfarin, Lovenox.Also anti- inflammatories, either prescription or over the counter,such as Aspirin, Advil, Aleve, Motrin, Ibuprofen, Naprosyn, Relafen,Mobic etc.These medications are safe to take: Celebrex and Tylenol. Shower or bathe the night before and again on the morning of your surgery with an antibacterial soap, since this practice can decrease your risk of an infection. Wear casual, comfortable, loose clothing such as sweat suits, easy button shirts or blouses. Remove all makeup and nail divehi.Bring an eyeglass case or contact lens case if you wear corrective lenses. Please leave all valuables, money and jewelry at home. Remove all rings Please call your surgeon's office Toll free @[phone] or [phone] pre-op services at [phone] with any questions or if you become ill before surgery, or develop a blemish, cut, rash or abrasion on or around your Surgical area. Pre-anesthetic Fasting Before Surgery Instructions Do not eat solid food or drink liquids containing fats,including milk, after midnight before your procedure day. You may have the following fat free,clear liquids until 2 hours prior to your scheduled time you are to arrive at the hospital. Clear liquids include: Water Apple or Cranberry juice Popsicles Jell-O Tammy jaciel Fat Free broth Black or sweetened coffee or tea. Take your medications as directed.If a medication must be taken with something other than fat free liquids or sips of water, please refer to the Preoperative Center at for guidance.These guide lines have been created with your safety in mind. Failure to comply with them may result incancellation of surgery or a delay on the day of surgery. More information is available at the [facility] web site ( [email or web address]). WHAT TO EXPECT AN OUTPATIENT SURGICAL PATIENT [facility]'s Outpatient Surgery program is a service offered to those patients in the community who require minor surgical treatment which can be safely completed in one day's time, therefore not requiring overnight hospitalization. The service permits the patient to have surgery and to go home the same day. In order to make your stay as short and as comfortable as possible, this instruction sheet has beenprepared for your convenience. The instructions contained in this document are important to ensure a safe surgical procedure and early discharge home. When you arrive for surgery Please arrive at [facility] per the time specified by your physician's office. Thiswill allow us adequate time to prepare you for your surgery. Single patients under the age of 18 MUST have a parent or legal guardian in the hospital at ALL times on the day of surgery, from the time of admission until discharge either home or to an inpatient bed.In order to coordinate your care, please ensure your ride expects to arrive a half hour before your expected discharge time. Arrange for a responsible adult to go home with you and to stay with you overnight. After registering in Admitting, you will be sent to the Surgical Admission area where you will be prepared for your surgery. You will change into a hospital gown or pajamas. Your health status will be updated and an IV (intravenous fluid) will be started. If an intravenous is needed on a child, it will be started in the operating room after the child isasleep. You will meet one of the anesthesia staff who will be with you during your surgery. They will ask you some questions and finalize your anesthesia plan of care. You will be moved into the operating room on a stretcher. A designated family waiting area is staffed by a inner tube tuber machine operator who will take your family's name as they enter. Your surgeon may them after your surgery. Please note that there is limited waiting area and we recommend only one or two family members accompany the patient . After your surgery - recovery You will be transferred to the Post Anesthesia Care Unit (PACU). When having outpatient surgery, most of the time you can go home between 1-4 hours after your surgery. Total recovery time varies fromprocedure to procedure. If you require extended recovery time, you can expect to be moved to the Post Procedure Recovery Unit (PPR) until your physician and nurse have determined that it is safe for you to go home If your physician determines that you require additional observation or a longer time to recover, you will be admitted and moved to an inpatient unit overnight. When this occurs, depending on the type of surgery you have, the hospital will bill your insurance as an outpatient subject to the benefits in your insurance plan. Adult parents or significant others are appropriate visitors in that PACU as visitation is limited to ensure safe quality care. Please try and make suitable arrangements for children under the age of18 during the post operative waiting period for their safety and comfort All patients must leave the hospital accompanied by a responsible adult truck driver supervisor after anesthesia or sedation. For the first 24 hour period after receiving sedation or anesthesia, you should NOT make important decisions, drive, operate machinery, or drink alcohol. Note: In some cases you may be sent home but directed to follow up in the doctor's office within a day or two. If you live locally, this should not be a problem. However, if you live further away, you may be asked to make arrangements for motel/hotel accommodations in the [facility]. You can find lodging information on www.[employer].org under the Patients and Visitors tab/Visitor's guide/Community .Information/Hotel, Motel & Lodging. POST OPERATIVE CARE AT HOME Keep your dressing/splint clean, dry and intact until you return to the office for your first visit. Swelling is expected in the arm/hand upon which you had surgery. To help relieve swelling, elevate the extremity, apply cold/ice, and use an over the counter anti-inflammatory as directed on the label such as Ibuprofen, Advil, or Aleve. Bleeding on your dressing after surgery may be normal and is no cause for alarm. Old blood will appear brownish in color. Call our office if you have active bleeding, this will be a bright red spot continually increasing in size. You will be given a prescription for a narcotics pain reliever to manage your pain during the immediate post operative period of 2-4 weeks. These medications can have side effects that include but are not limited to nausea, dizziness, sedation, insomnia, and constipation. Anticipating these temporary side effects will better enable you to better manage them. Always take your medicine with food and maintain an adequate fluid intake. If you are not able to manage/tolerate these side effects, callour office. PLEASE keep in mind that you are required to have a written prescription to take to the pharmacy tohave narcotic medication given to you, these cannot be called in. If you live out of town and/or out of state you'll need to plan in advance for someone to come to the office to get a prescription for any refills you may require to meet your pain control needs. There are 4 things you need to check a couple of times a day: Color - There is frequently bruising associated with fractures or surgery. The color associated with bruising usually black and blue and later on greenish- yellow and it may spread out as time passes.This is entirely normal. Sensation - When you have surgery you may be given a nerve block by Anesthesia or be given a local block at the site of surgery by the surgeon. This block makes your arm/hand feel numb and heavy. This sensation can last for several hours or as long as 24 - 72 hours after surgery. This is normal. Asthe block wears off, you should be able to feel your arm/hand. They should no longer feel tingly ornumb. If the numbness/tingling persist this may be due to swelling. Motion - You should be able to wiggle your fingers (if you have been instructed to do so). If you cannot, please call the office. Temperature - The temperature of operative limb, as measured by touch, should be similar to the non-operative limb. It may be cooler related to nonuse but shouldn't be significantly colder than the unaffected limb. Call our office if you have concern.Call our office if you have a fever of 102 or above. This is a copy of the consent for you will sign the day of surgery with the anesthesiologist. I give it to you at this time so you can read it at your leisure. I understand that: I need to consider anesthesia care for myself or the above named patient. The type of anesthesia to be recommended will depend upon the procedure, and the physical and psychological condition of the patient Anesthesia is a medical service which manages patients before, during, and after a procedure. Patients are rendered unconscious or with diminished response to pain and stress during the course of a medical, surgical, or obstetrical procedure. Conditions may require implementation of anesthetic or monitoring techniques not necessarily discussed, but necessary for the patient's benefit and well-being, including placement of catheters in large blood vessels, epidural catheters in the spine for pain control, nerve blocks, cardiopulmonary life support, and blood or blood product transfusions. In addition to the anesthesiologist whose name appears on this document, the anesthetic care may beprovided by other anesthesiologists with hospital staff privileges or, acting under the direct supervision of the anesthesiologist, by certified registered nurse anesthetists, and to a more limited extent by the nurses, and medical personnel trainees. There is the possibility of unforeseen occurrences and no guarantees have been made as to the result of the anesthetic. Types of Anesthesia and Definitions General Anesthesia:is the provision of intravenous (IV) or inhalational (gaseous) anesthetic medications as deemed necessary to provide managed loss of consciousness and insensibility to pain. At a minimum, in addition to monitoring devices, a mask on the face or on the larynx (voice box) or a tubein the trachea (wind pipe) will be utilized. Regional Anesthesia and Analgesia:is suitable for some operations and other painful conditions. Anesthetics and other medications are injected into the spinal or epidural space, or other locations toprovide loss of or reduced sensation in a specific area of the body and may be supplemented by local anesthesia, sedation, or general anesthesia as deemed necessary to provide adequate comfort These techniques may be continued into the postoperative period for the purpose of controlling or diminishing the anticipated discomfort normally associated with a surgical procedure. Monitored Anesthesia Care (MAC):is the monitoring and possible treatment of at least blood pressure, blood oxygen level, heart rate, and mental state using supplementing sedation and analgesia as well as other medications, as needed to provide comfort and safety. This type of care is typically implemented in conjunction with surgeon administered local anesthesia. Local Anesthesia: Local anesthesia is usually done by the operating physician, where anesthetizing agents are injected of infiltrated into a small area of the body, for example the surgical site. Topical Anesthesia. Surface anesthesia is produced by direct application of anesthetizing agents onskin or mucous membranes. Fortunately, anesthesia care is safe for the general population. To be complete, however, please review the following: Risk and Complications may include but are not limited to: allergic/adverse drug reaction, lung aspiration of stomach contents, backache, dental injury, injury or demise, headache, heart attack, inability to reverse the effects of anesthesia as planned, infection, injection of substance into an unintended site, localized swelling and/or redness, lung injury, muscle aches, nausea or vomiting, opthalmic (eye) injury, pain, pneumonia, nerve injury, recall of sound/noise/speech, seizures, sore throat, and inadequacy of the prescribed anesthetic necessitating a change in treatment On extremely rare occasions, brain damage, coma, paralysis, stroke, or may result. I understand that alternative therapeutic choices, with varying risks, including no anesthesia, maybe available. Special techniques such as hypothermic arrest, hypotensive anesthesia, lumbar fluid drainage, or dilutional anemia recommended by the surgeon or anesthesiologist may be implemented for the benefit of the patient. I have been given the opportunity to ask questions about anesthesia and feel that I have sufficientinformation to give this informed consent. If I refuse to accept any recommendation or treatment bythe anesthesiologist, it is noted below. I agree to anesthesia care and specifically to the anesthesia care prescribed to me by the painter assistant/anesthesiologist for my surgical procedure excepting. My consent will continue in effect unless withdrawn. If you have any questions and would like to discuss your anesthesia care please call the Departmentof Anesthesia at [phone] and you will be connected to an anesthesiologist or one will return your phone call. documented in this encounter Plan of Treatment Not on file documented as of this encounter Visit Diagnoses Not on filedocumented in this encounter Care Teams Hearing Specialist Relationship Specialty Start Date End Date Ruiz Morley MD PCP - General 07/19/09 documented as of this encounter
--- OUTSIDE RECORDS SUMMARY | 2024-06-04 10:37 | XMS_ITS | Encounter Summary ---
Author Organization [facility] Address [address] [place] [address] Care Team Providers Care Infrastructure Design Engineer Name Role Phone Ruiz Morley MD Primary Care Provider Un available Encounter Details Date Type Department Care Team (Late st Contact Info) Description 08/09/2010 Abstract [facility] Hand & Upper Extremity Program - [address] [place], [place] [id number] Lottie Maravilla MD [address] [place] [phone] Social History Tobacco Use Types Packs/Day Years [...] on filedocumented in this encounter Care Teams Infrastructure Design Engineer Relationship Specialty Start Date End Date Ruiz Morley MD PCP - General 07/19/09 documented as of this encounter
--- OUTSIDE RECORDS SUMMARY | 2024-06-04 10:37 | XMS_ITS | Encounter Summary ---
Author Organization [facility] Address [address] [place] [address] Care Team Providers Care Instrument Repairer Name Role Phone Ruiz Morley MD Primary Care Provider Un available Reason for Visit * Reason Comments Hand Injury right hand doi 7.1.2 010 Encounter Details Date Type Department Care Team (Late st Contact Info) Description 06/12/2010 10:45 EST Office Visit [facility] Hand & Upper Extremity Program [place] [address] Charlie Parisi PA [address] [place], [place] [address] Amputation finger (Primary Dx) Social History Tobacco [...] - Inhaled Oxygen Concentration - - Weight 72.6 kg (160 lb) 06/12/2010 1037 EST Height 172.7 cm (5' 8) 06/12/2010 1037 EST Body Mass Index 24.33 06/12/2010 1037 EST Body Mass Index Percentile 76.91% 06/12/2010 103 7 EST Growth Chart: CDC (Boys, 2-2 0 Years) documented in this encounter Progress Notes * Charlie Parisi - 07/01/2010 5641 EDT [facility] PROGRESS/FOLLOWUP NOTE - 06/12/2010 PROBLEM: Follow up right long finger amputation. SUBJECTIVE: Daryl is back today with some new complaints. He had amputated his long finger and his last visit with me was in November 2009. He was doing very well at that time. Therefore, we saw him back on a p.r.n. basis. He is here today with his parents and his sister. It was noted that he had a nail that he thought was starting to grow back and he has been trying to pull the nail off without much relief. He is also noticing that he gets pain over the tip of his finger with any heavy pressure,more so on the radial side than on the ulnar side. Overall, he complains of no abnormal nerve sensations or any signs of infection. He states he has been pulling on his nail remnant, but it has not tr ied to get infected, he states. OBJECTIVE: Daryl is alert and oriented x3. He is appropriate and in no distress. Examination of theright hand certainly does reveal that he has a nail remnant on the radial aspect of the long finger, which is somewhat tender to palpation. There is no erythema around the area but he does have a palpable area in this same region that is quite tender to palpation and it feels like it is directly over the bony stump. The scar itself is healing very well and there is no abnormal appearance such as a dog ear. He certainly does not have a positive Tinel's or any signs of a neuroma. He has excellentrange of motion of his finger, otherwise. DIAGNOSTIC DATA: We did order radiographs today of the right hand to assess the bony structures. Itappears that on the radial side of the stump he has a squared off bone and from anterior to posterior it is also square instead of nice and round. This may be causing some of his pain. ASSESSMENT: Pain and a nail remnant after amputation of right long finger. PLAN: We had a discussion today about possible surgical revision amputation and Daryl and his parents both want him to followthrough with this. We talked about getting him in with Dr Maravilla and discussed also removing his nail remnant. I do not think that he has a neuroma, but this could be addressed at the same time if it is discovered during surgery. With this in mind, I have set Daryl up to me et with Dr Maravilla in the near future. I will see Daryl, therefore, on a p.r.n. basis. Electronically Signed by Charlie Parisi PA-C 07/01/2010 14:51 Dictated by: Charlie Parisi PA-C - Charlie Parisi PA-C A - KINGA Job ID: SM Doc ID: [id number] Ext Doc ID: [id number] cc: * Charlie Parisi - 06/17/2010 1502 EST This office note has been dictated. documented in this encounter Plan of Treatment Not on file documented as of this encounter Procedures Procedure Name Priority Date/Time Associated Diagnosis Comments FINGER 2 OR MORE VIEWS Routine 06/12/2010 10:50 EST Amputation finger documented in this encounter Results * FINGER 2 OR MORE VIEWS (06/12/2010 10:50 EST) Anatomical Region Laterality Modality Other 06/12/2010 10:5 0 EST 06/14/2010 10:17 EST Narrative 06/14/2010 10:17 EST FINGER 2 OR MORE VIEWS ?? June 12, 2010 10:50:00 AM Clinical History/Comments: ??886.0-amputation finger-i9 ??Left long finger amputation with pain. Assess for possible bony changes. Findings: Two views of the right digit are obtained. Comparison is made to October 30, 2009, casted study with limited visualization of this digit. By history, there has been amputation of the distal aspect of this digit. Proximal phalanx has a normal appearance. The distal middle phalanx ??and the distal phalynx are absent. The soft tissue overlying this distal digit has a smooth a normal appearance without focal abnormality.. No periosteal thickening. No callus formation. Impression: Amputation of a right digit. Note.The clinical history and comments indicates left long finger amputation with pain. Images submitted for examination have been identified as the right digit. Procedure Note 06/14/2010 FINGER 2 OR MORE VIEWS June 12, 2010 10:50:00 AM Clinical History/Comments: 886.0-amputation finger-i9 Left long finger amputation with pain. Assess for possible bony changes. Findings: Two views of the right digit are obtained. Comparison is made to October 30, 2009, casted study with limited visualization of this digit. By history, there has been amputation of the distal aspect of this digit. Proximal phalanx has a normal appearance. The distal middle phalanx and the distal phalynx are absent. The soft tissue overlying this distal digit has a smooth a normal appearance without focal abnormality.. No periosteal thickening. No callus formation. Impression: Amputation of a right digit. Note.The clinical history and comments indicates left long finger amputation with pain. Images submitted for examination have been identified as the right digit. Charlie HAYNES IMG DIAGNOSTIC IMAGING ORDERABLE S Final Result documented in this encounter Visit Diagnoses Diagnosis Traumatic amputation of other finger(s) (complete) (partial), without mention of complication- Primary documented in this encounter Care Teams Instrument Repairer Relationship Specialty Start Date End Date Ruiz Morley MD PCP - General 07/19/09 documented as of this encounter
--- OUTSIDE RECORDS SUMMARY | 2024-06-04 10:37 | XMS_ITS | Encounter Summary ---
Author Organization [facility] Address [address] [place] [address] Care Team Providers Care Floating Operator Name Role Phone Ruiz Morley MD Primary Care Provider Un available Encounter Details Date Type Department Care Team (Late st Contact Info) Description 11/15/2020 Lab Requisition [facility] Pathology & Laboratory Medicine - [facility] [address] [place] [address] Outr Resulting Lab, Provider Social History Tobacco [...] Procedure Name Priority Date/Time Associated Diagnosis Comments ZZCOVID-19 TEST [facility] PCR Today 11/14/2020 16:30 EDT COVID-19 TESTING Routine 11/14/2020 16:3 0 EDT documented in this encounter Results * COVID-19 TEST [facility] PCR (11/14/2020 16:30 EDT) Swab ENTIRE NASOPHARYNX / Unknown 11/14/2020 16:30 EDT 11/15/2020 15:43 EDT us Provider Outr Resulting Lab MICROBIOLOGY - GENER AL ORDERABLES Final Result Performing Organization Address [facility] Co de Phone Number [facility] [address] [place] [address] * COVID-19 TESTING (11/14/2020 16:30 EDT) COVID-19 rt-PCR Result Negative Negative 11/16/2020 14:35 EDT [facility] Comment: This test has not been FDA cleared or approved. This test has been authorized by FDA under an EUA for use by authorized laboratories. This test has been authorized only for detection of nucleic acid from 2019-nCoV, not for any other viruses or pathogens. This test is only authorized for the duration of the declaration that circumstances exist justifying the authorization of emergency use of in vitro diagnostic tests for detection and/or diagnosis of 2019-nCoV under section 564(b)(1) of Act, 21 U.S.C ?? 360bbb-3(b) (1), unless the authorization is terminated or revoked sooner. Negative results do not preclude 2019-nCoV infection and should not be used as the sole basis for treatment or other patient management decisions. Negative results must be combined with clinical observations, patient history, and epidemiological information. Testing was performed using the jacklyn SARS-CoV-2 assay ([employer] on the Jacklyn 6800 System Performing Lab Jacklyn [address] [facility] Lab 11/16/2020 14:35 EDT [facility] Swab 11/14/2020 16:3 0 EDT 11/15/2020 15:43 EDT us Provider Outr Resulting Lab MICROBIOLOGY - GENER AL ORDERABLES Final Result Performing Organization Address [facility] Co de Phone Number [facility] [address] [place] [address] documented in this encounter Visit Diagnoses Not on filedocumented in this encounter Care Teams Floating Operator Relationship Specialty Start Date End Date Ruiz Morley MD PCP - General 07/19/09 documented as of this encounter
--- OUTSIDE RECORDS SUMMARY | 2024-06-04 10:37 | XMS_ITS | Encounter Summary ---
Author Organization [facility] Address [address] [place] [address] Care Team Providers Care Engineering Scientist Name Role Phone Ruiz Morley MD Primary Care Provider Un available Encounter Details Date Type Department Care Team (Late st Contact Info) Description 11/15/2009 Office Visit [facility] Hand & Upper Extremity Program - [address]ela [facility] [address] [place], [place] [id number] Charlie Parisi PA [address] [place] [address] Social History Tobacco Use Types Packs/Day Years Used Date Smoking Tobacco: Never Alcohol Use Standard Drinks/Week Comments No 0 (1 standard drink = 0.6 oz pur e alcohol) Sex and Gender Information Value Date Recorded Sex Assigned at Not on file Legal Sex Male 18:48 EST Gender Identity Not on file Sexual Orientation Not on file documented as of this encounter Progress Notes * Charlie Parisi - 01/01/2010 1511 EDT ORTHOPAEDICS AND REHABILITATION SERVICES PROGRESS/FOLLOWUP NOTE - 11/15/2009 PROBLEM: Right amputated ring finger. SUBJECTIVE: Daryl reports today with his mom and has no complaints. He has been using his right ring finger and has a bit of sensitivity on the tip. He has already been starting to work on massaging it, though. Overall, he is doing very well. OBJECTIVE: Daryl is alert and oriented x3, he is appropriate, in no distress. Examination of the right hand reveals that he has excellent extension and flexion of his digit. His stump is doing very well and rounding off nicely. He has no extreme hypersensitivity to palpation on the tip and his sensation and circulation is felt to be normal. He nearly can make a full fist with the limitations of DIP flexion. ASSESSMENT: Amputation of the right ring finger, doing very well. PLAN: Daryl is doing well enough now that if needed we will see him in 3 weeks or so, but if he needs to be sooner, he can call us. I think this will likely be his last visit though. Sutures were removed today as well. Electronically Signed by Charlie Parisi PA-C 01/01/2010 15:11 Dictated by: Charlie Parisi PA-C - Charlie Parisi PA-C A - CHERYL Job ID: SM Doc ID: [id number] Ext Doc ID: [id number] cc: documented in this encounter Plan of Treatment Not on file documented as of this encounter Visit Diagnoses Not on filedocumented in this encounter Care Teams Engineering Scientist Relationship Specialty Start Date End Date Ruiz Morley MD PCP - General 07/19/09 documented as of this encounter
--- OUTSIDE RECORDS SUMMARY | 2024-06-04 10:37 | XMS_ITS | Referral Summary ---
Author Organization [facility] Address [address] [place] [address] Care Team Providers Care Hide Cooking Operator Name Role Phone Ruiz Morley MD Primary Care Provider Un available Allergies No known active allergies Medications IBUPROFEN (ADVIL ORAL) Take by mouth as needed. Active Active Problems Problem Noted Date Diagnosed Date Traumatic amputation of othe r finger(s) (complete) (partial), without mention of complication 01/09/2010 Social History Tobacco Use Types Packs/Day Years Used Date Smoking Tobacco: Never Alcohol Use Standard Drinks/Week Comments No 0 (1 standard drink = 0.6 oz pur e alcohol) Sex and Gender Information Value Date Recorded Sex Assigned at Not on file Legal Sex Male 18:48 EST Gender Identity Not on file Sexual Orientation Not on file Last Filed Vital Signs Vital Sign Reading [...] 23.01 07/08/2011 1324 EDT Plan of Treatment Not on file Procedures Procedure Name Priority Date/Time Associated Diagnosis Comments HEPATITIS C AB W REFLEX TO HCV RNA BY PCR Routine 05/13/2023 11:15 EST from Last 3 Months or Most Recently Relevant to Health Maintenance Results * HEPATITIS C AB W REFLEX TO HCV RNA BY PCR (05/13/2023 11:15 EST) Hep C Antibody Negative Negative 05/14/2023 9:03 EST [facility] Blood VENOUS BLOOD / Unknown 05/13/2023 11:15 EST 05/13/2023 21:21 EST us Provider Outr Resulting Lab CHEMISTRY & BLOOD GA S ORDERABLES Final Result [facility] [address] [place] [address] from Last 3 Months or Most Recently Relevant to Health Maintenance Insurance [employer] [facility] Address: [facility] [id number] [place] [id number] Care Teams Hide Cooking Operator Relationship Specialty Start Date End Date Ruiz Morley MD PCP - General 07/19/09
--- OUTSIDE RECORDS SUMMARY | 2024-06-04 10:37 | XMS_ITS | Encounter Summary ---
Author Organization [facility] Address [address] [place] [address] Care Team Providers Care Balloon Design Printer Name Role Phone Ruiz Morley MD Primary Care Provider Un available Encounter Details Date Type Department Care Team (Late st Contact Info) Description 01/23/2023 Orders Only [facility] Reproductive Medicine & Infertility Center - [address] [id number] Teodora Bell MD [address] [facility], [address] [place] [address] Female infertility (Primary Dx) Social History Tobacco Use Types [...] as of this encounter Plan of Treatment Scheduled Orders Name Type Priority Associated Diagnoses Orde r Schedule POCT SEMEN ANALYSIS, COMPLETE Point of Care Testing Routine Female infertility Ordered: 01/23/2023 documented as of this encounter Visit Diagnoses Diagnosis Female infertility- Primary Female infertility of unspecified origin documented in this encounter Care Teams Balloon Design Printer Relationship Specialty Start Date End Date Ruiz Morley MD PCP - General 07/19/09 documented as of this encounter
--- OUTSIDE RECORDS SUMMARY | 2024-06-04 10:37 | XMS_ITS | Encounter Summary ---
Author Organization [facility] Address [address] [place] [address] Care Team Providers Care Data Mining Analyst Name Role Phone Ruiz Morley MD Primary Care Provider Un available Reason for Visit * Reason Onset Date Comments Procedure 02/21/2011 Encounter Details Date Type Department Care Team (Late st Contact Info) Description 02/21/2011 Pre-Procedure Orders Encounter [facility] Hand & Upper Extremity Program - [address] [place] [address] Katya Valverde LPN [address] [place] [address] Amputation finger Social History Tobacco Use Types Packs/Day Years [...] other finger(s) (complete) (partial), without mention of complication documented in this encounter Care Teams Data Mining Analyst Relationship Specialty Start Date End Date Ruiz Morley MD PCP - General 07/19/09 documented as of this encounter
--- OUTSIDE RECORDS SUMMARY | 2024-06-04 10:37 | XMS_ITS | Encounter Summary ---
Author Organization [facility] Address [address] [place] [address] Care Team Providers Care Pony Ride Attendant Name Role Phone Ruiz Morley MD Primary Care Provider Un available Encounter Details Date Type Department Care Team (Late st Contact Info) Description 05/13/2023 Lab Requisition [facility] Pathology & Laboratory Medicine - [address] [address] Outr Resulting Lab, Provider Social History Tobacco [...] RNA BY PCR Routine 05/13/2023 11:15 EST documented in this encounter Results * HEPATITIS C AB W REFLEX TO HCV RNA BY PCR (05/13/2023 11:15 EST) Hep C Antibody Negative Negative 05/14/2023 9:03 EST [facility] Blood VENOUS BLOOD / Unknown 05/13/2023 11:15 EST 05/13/2023 21:21 EST us Provider Outr Resulting Lab CHEMISTRY & BLOOD GA S ORDERABLES Final Result [facility] [address] [place] [address] documented in this encounter Visit Diagnoses Not on filedocumented in this encounter Care Teams Pony Ride Attendant Relationship Specialty Start Date End Date Ruiz Morley MD PCP - General 07/19/09 documented as of this encounter
--- OUTSIDE RECORDS SUMMARY | 2024-06-04 10:37 | XMS_ITS | Encounter Summary ---
Author Organization [facility] Address [address] [place] [address] Care Team Providers Care Narrow Fabrics Weaver Name Role Phone Ruiz Morley MD Primary Care Provider Un available Encounter Details Date Type Department Care Team (Late st Contact Info) Description 07/09/2020 Lab Requisition [facility] Pathology & Laboratory Medicine - [address] [address] Outr Resulting Lab, Provider Social History Tobacco [...] Comments ZZCOVID-19 TEST [facility] PCR Today 07/09/2020 8:48 EDT COVID-19 TESTING Routine 07/09/2020 8:48 EDT documented in this encounter Results * COVID-19 TEST [facility] PCR (07/09/2020 8:48 EDT) Swab ENTIRE NASOPHARYNX / Unknown 07/09/2020 8:48 EDT 07/09/2020 16:17 EDT us Provider Outr Resulting Lab MICROBIOLOGY - GENER AL ORDERABLES Final Result [facility] [address] [place] [address] * COVID-19 TESTING (07/09/2020 8:48 EDT) COVID-19 rt-PCR Result Negative Negative 07/10/2020 14:24 EDT [facility] Comment: This test has not [...] clinical observations, patient history, and epidemiological information. This test was developed and its performance characteristics determined by [facility]. It has not been cleared or approved by the US Food and Drug Administration. FDA does not require this test to go through premarket FDA review. This test is used for clinical purposes. It should not be regarded as investigational or for research. This laboratory is certified under the Clinical Laboratory Improvement Amendments (CLIA) as qualified to perform high complexity clinical laboratory testing. This test is based on the [facility] COVID-19 Emergency Use Authorization (EUA) assay, with minor modification as defined by the FDA Performed on the Tap 'n Tap 7 Pro RT-PCR System. Performing Lab [facility] Lab 07/10/2020 14:24 EDT [facility] Swab 07/09/2020 8:48 EDT 07/09/2020 16:17 EDT Provider Outr Resulting Lab MICROBIOLOGY - GENER AL ORDERABLES Final Result [facility] [address] [place] [address] documented in this encounter Visit Diagnoses Not on filedocumented in this encounter Care Teams Narrow Fabrics Weaver Relationship Specialty Start Date End Date Ruiz Morley MD PCP - General 07/19/09 documented as of this encounter
--- OUTSIDE RECORDS SUMMARY | 2024-06-04 10:37 | XMS_ITS | Encounter Summary ---
Author Organization [facility] Address [address] [place] [address] Care Team Providers Care Pricer Name Role Phone Ruiz Morley MD Primary Care Provider Un available Reason for Visit * Reason Comments Finger Injury Right ring finger DO I 10/30/09 Encounter Details Date Type Department Care Team (Late st Contact Info) Description 12/06/2009 14:00 EDT Office Visit [facility] Hand & Upper Extremity Program - [address] [facility] [place] [address] Charlie Parisi PA [address] [place] [address] Amputation, finger, traumatic (Primary Dx) Social History Tobacco Use Types [...] encounter Progress Notes * Charlie Parisi - 12/13/2009 1429 EDT ORTHOPAEDICS AND REHABILITATION SERVICES PROGRESS/FOLLOWUP NOTE - 12/06/2009 PROBLEM: Followup left long finger amputation. SUBJECTIVE: I am seeing Daryl today for followup. He has been doing very well. He relates to some sensitivity on the very tip of the right long finger that was amputated on 10/30/2009. OBJECTIVE: Daryl is alert and oriented x3. He is appropriate, in no distress. Examination of the right long finger reveals that his stump is healing very well and is starting to round off without anydog ear appearances. He has one small area where the skin is not completely healed, but there is noactive drainage or redness. His finger is neurovascularly intact and a bit hypersensitive on the volar ulnar aspect of the tip of the finger but it does not appear to be a dylan neuroma. He can flex the PIP from 0 to 95 degrees without difficulty and he can nearly make a full fist. ASSESSMENT: Right long finger amputation, doing well. PLAN: I think Daryl is doing well enough now that he can go to a fingertip protector made out of silicone. We have fitted this to him today in the office; it was supplied by our therapy department. We would then see him on a p.r.n. basis as he is doing so well. I also filled out paperwork today forhim to try to get a vinh gentile's permit. Electronically Signed by Charlie Parisi PA-C 12/13/2009 14:29 Dictated by: Charlie Parisi PA-C - Charlie Parisi PA-C P - WILLIAMG Job ID: SM Doc ID: [id number] Ext Doc ID: [id number] cc: * Charlie Parisi - 12/06/2009 1627 EDT Note dictated. documented in this encounter Plan of Treatment Not on file documented as of this encounter Visit Diagnoses Diagnosis Amputation, finger, traumatic- Primary Traumatic amputation of other finger(s) (complete) (partial), without mention of complication documented in this encounter Discontinued Medications Medication Sig Discontinue Reason Start Date End Da te cephALEXin (KEFLEX) 250 mg capsule Take 1 Cap by mouth 4 times daily. Patient Stopped Taking 10/30/2009 12/06/2009 hydrocodone-acetaminop hen (VICODIN) 5-500 mg per tablet Take 1 Tab by mouth every 4 hours as needed for Pain. Patient Stopped Taking 10/30/2009 12/06/2009 documented as of this encounter Care Teams Pricer Relationship Specialty Start Date End Date Ruiz Morley MD PCP - General 07/19/09 documented as of this encounter
--- OUTSIDE RECORDS SUMMARY | 2024-06-04 10:37 | XMS_ITS | Encounter Summary ---
Author Organization [facility] Address [address] [place] [address] Care Team Providers Care Engineering Administrator Name Role Phone Ruiz Morley MD Primary Care Provider Un available Encounter Details Date Type Department Care Team (Latest Contact Info) Description 01/09/2023 7:37 EDT - 01/09/2023 23:59 EDT Hospital Encounter [facility] Reproductive Medicine & Infertility Center - [facility] [address] [place] [address] Lab, E&I Discharge Disposition: Home or Self Care Social History Tobacco Use Types Packs/Day Years Used Date Smoking Tobacco: Never Alcohol Use Standard Drinks/Week Comments No 0 (1 standard drink = 0.6 oz pur e alcohol) Sex and Gender Information Value Date Recorded Sex Assigned at Not on file Legal Sex Male 18:48 EST Gender Identity Not on file Sexual Orientation Not on file documented as of this encounter Medications at Time of Discharge IBUPROFEN (ADVIL ORAL) Take by mouth as needed. documented as of this encounter Discharge Disposition Disposition Code Departure Means Destination Home or Self Care documented in this encounter Plan of Treatment Not on file documented as of this encounter Visit Diagnoses Not on filedocumented in this encounter Care Teams Engineering Administrator Relationship Specialty Start Date End Date Ruiz Morley MD PCP - General 07/19/09 documented as of this encounter
--- OUTSIDE RECORDS SUMMARY | 2024-06-04 10:37 | XMS_ITS | Encounter Summary ---
Author Organization [facility] Address [address] [place] [address] Care Team Providers Care Mold Cleaner Name Role Phone Ruiz Morley MD Primary Care Provider Un available Reason for Visit * Reason Comments Back Pain Encounter Details Date Type Department Care Team (Late st Contact Info) Description 07/08/2011 13:30 EDT Office Visit [facility] Spine Program - [address] [place] [address] Patrice Chi PA-C [address] [place] [address] [place] [address] Low back pain (Primary Dx) Social History Tobacco Use Types [...] Body Mass Index 23.01 07/08/2011 1324 EDT documented in this encounter Progress Notes * Patrice Chi PA - 07/08/2011 1356 EDT Since our last visit, Daryl had experienced intermittent episodes of low back pain. He can have episodes of pain that can last 3 to 4 days, or go for a week without symptoms. He has a very difficult job. 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 His last episode occurred one week ago and is quite uncomfortable. He and his father were a bit upsetso they decided to phone follow up with us and make an appointment. His symptoms come on randomly with bending, sometimes walking upstairs or other random events. He finds relief with lying down and sitting. He had seen a physical therapist for a couple of weeks, but he has found no real change in his symptoms. He has not seen a chiropractor, although he had in the past and only provided short-term relief. He has not had injections. Currently states 100% of his discomfort is focused in his back, no lower extremity symptoms, tingling or numbness. Objectively, radiographs of the lumbar spine dated November 2009 reveal endplate deformity at L4 superiorly, what looks like an apophyseal fracture with mild loss of disk space height at 3-4. Repeat films today, AP, lateral, flex-ex films reveal elevated iliac crest on the right. Lateral view revealsdiminished disk space height at 3-4 with persistent deformity in the superior endplate of L4, possibly an apophyseal fracture, no instability in flexion or extension. ASSESSMENT: A 21-year-old gentleman with back pain, likely musculoskeletal diskogenic, no signs of nerve root impingement. I noted that he should participate in daily activities as tolerated without limitation without fear of damaging himself, although he will have episodes of increased pain. Not clear that physical therapy or menagerie caretaker could make a big impact in his symptoms, and since menagerie caretaker is typically out of pocket I am not sure he could afford the investment. He and hisfather both felt much more comfortable after reviewing the x-rays and discussing his differential. My plan at this point would be to participate in daily activities as tolerated without limitation. If he has increased back pain or new lower extremity symptoms that last greater than 2 weeks, he is certainly welcome to phone follow up with us and I will schedule an appointment as needed. If he has leg symptoms we will order an MRI and follow up with him post. Otherwise, follow up p.r.n. I spent greater than 25 minutes, with 25 minutes of our time spent [id number] discussing symptoms, subjective complaints and reviewing his treatment options. documented in this encounter Plan of Treatment Not on file documented as of this encounter Procedures Procedure Name Priority Date/Time Associated Diagnosis Comments L SPINE 4 OR MORE VIEWS Routine 07/08/2011 13:46 EDT Low back pain documented in this encounter Results * L SPINE 4 OR MORE VIEWS (07/08/2011 13:46 EDT) Anatomical Region Laterality Modality Other 07/08/2011 13:4 6 EDT 07/08/2011 14:43 EDT Narrative 07/08/2011 14:43 EDT LUMBAR SPINE FOUR VIEWS July 08, 2011 Indication: Low back pain. Comparison: July 23, 2009. Technique: AP and lateral flexion, neutral and extension views of the lumbar spine were obtained. Findings: There is mild thoracolumbar levoscoliotic curvature convex at about L1. No jojo or retrolisthesis is appreciated in flexion, neutral or extension views. Vertebral body heights are preserved. There is mild disc space narrowing at L3-L4 with subtle endplate sclerosis, which is likely reactive and unchanged from the prior x-rays. Procedure Note 07/08/2011 LUMBAR SPINE FOUR VIEWS July 08, 2011 Indication: Low back pain. Comparison: July 23, 2009. Technique: AP and lateral flexion, neutral and extension views of the lumbar spine were obtained. Findings: There is mild thoracolumbar levoscoliotic curvature convex at about L1. No jojo or retrolisthesis is appreciated in flexion, neutral or extension views. Vertebral body heights are preserved. There is mild disc space narrowing at L3-L4 with subtle endplate sclerosis, which is likely reactive and unchanged from the prior x-rays. Patrice Hemond PA-C IMG DIAGNOSTIC IMAGING ORDERA BLES Final Result documented in this encounter Visit Diagnoses Diagnosis Low back pain- Primary Lumbago documented in this encounter Historical Medications * This list may reflect changes made after this encounter. IBUPROFEN (ADVIL ORAL) Take by mouth as needed. added in this encounter Care Teams Mold Cleaner Relationship Specialty Start Date End Date Ruiz Morley MD PCP - General 07/19/09 documented as of this encounter
--- OUTSIDE RECORDS SUMMARY | 2024-06-04 10:37 | XMS_ITS | Encounter Summary ---
Author Organization [facility] Address [address] [place] [address] Care Team Providers Care C D Area Supervisor Name Role Phone Ruiz Morley MD Primary Care Provider Un available Encounter Details Date Type Department Care Team (Late st Contact Info) Description 10/17/2022 Orders Only [facility] - [address] [phone] Perri Michelle MD [address] [facility], [address] [place] [address] Fertility testing (Primary Dx) Social History Tobacco Use Types [...] Procedure Name Priority Date/Time Associated Diagnosis Comments POCT SEMEN ANALYSIS, COMPLETE Routine 01/09/2023 8:11 EDT Fertility testing documented in this encounter Results * (ABNORMAL) POCT SEMEN ANALYSIS, COMPLETE (01/09/2023 8:11 EDT) Partner Princess Arnold [facility] POINT OF CARE Referring Provider [facility] Outside Request UV N POINT OF CARE Specimen Collected, POC In Clinic (Normal) [facility] POINT OF CARE Length of Sexual Abstinence, POC 2 Days [facility] POINT OF CARE Any Portion of Specimen Lost During Collection No No [facility] POIN T OF CARE Time Received 812 [facility] POINT OF CARE Received by CARY [facility] PO INT OF CARE Examined at 850 [facility] PO INT OF CARE Viscosity Normal viscosity Norm/Visco us [facility] POINT OF CARE pH 8.6 7.2 - 9.0 [facility] POIN T OF CARE Specimen Volume 2.2 >=1.5 ml [facility] N POINT OF CARE Sperm Count 66.3 >=15 M/ml [facility] PO INT OF CARE Total Sperm Count 145.8 >=39 Million [facility] POINT OF CARE Motility,POC 58 >=40 % [facility] P OINT OF CARE Motility, Speed of Progression(grade d),POC 2+ Slow Progression( L) = 4 (Rapid Progressio n) to 0 (immotile) [facility] POINT OF CARE Comment:30% undulating rapid progression; 60% slow progression; 10% non-progressive Total Motile Sperm 84.5 Million [facility] POINT OF CARE Sperm Clumping (non-motile) Absent Absent [facility] POINT OF CARE Agglutination (motile sperm) Absent Absent % [facility] POINT OF CARE Normal Forms 6 >=4 % [facility] P OINT OF CARE Comment:93% abnormal heads; 1% abnormal midpiece Round Cells 1 <5 M/ml [facility] PO INT OF CARE PMN'S (Leukocytes) [facility] POINT OF CARE Comments, POC SEMEN [facility] POINT OF CARE Electronic Signature Seth Swain, PhD, [facility] POINT OF CARE Semen ENTIRE PENIS / Unknown 01/09/2023 8:11 EDT Perri Michelle MD POINT OF CARE TEST ORDER SCHUYLER Final Result [facility] POINT OF CARE documented in this encounter Visit Diagnoses Diagnosis Fertility testing- Primary documented in this encounter Care Teams C D Area Supervisor Relationship Specialty Start Date End Date Ruiz Morley MD PCP - General 07/19/09 documented as of this encounter
--- OUTSIDE RECORDS SUMMARY | 2024-06-04 10:38 | XMS_ITS | Encounter Summary ---
Author Organization [facility] Address [address] [place] [address] Care Team Providers Care Painting Technician Name Role Phone Ruiz Morley MD Primary Care Provider Un available Reason for Visit * Reason Comments Finger Injury right middle finger injury doi 7.13.10 Encounter Details Date Type Department Care Team (Late st Contact Info) Description 11/15/2009 14:15 EDT Office Visit [facility] Hand [facility] Upper Extremity Program - [place] [facility] [place] [address] Charlie Parisi PA [address] [place] [address] Amputation finger (Primary Dx) Social History Tobacco [...] encounter Progress Notes * Charlie Parisi - 01/09/2010 1607 EDT This office note has been dictated. 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
--- OUTSIDE RECORDS SUMMARY | 2024-06-04 10:38 | XMS_ITS | Encounter Summary ---
[place] [address] Care Team Providers Care Journal Clerk Name Role Phone Lisa Greenwood APRN Primary Care Provider [phone] Reason for Referral * Consultation (Routine) - Closed Specialty Diagnoses / Procedures Referred By Juan Miguel morales Referred To Contact Obstetrics and Gynecology Diagnoses Infertility counseling PARTNER IS SAUD FLAVIO ([birth year]) Lisa Greenwood APRN [address] [place] [address] [facility] [employer] [address] Referral ID Status Reason Start Date Expiration Date V isits Requested Visits Authorized [id number] Closed Consult, Test & Treat PCP Updated and/or Approved 08/31/2022 08/31/2023 6 6 Encounter Details Date Type Department Care Team (Latest Contact Info) Description 08/31/2022 Transcribe Orders eDH Incoming Referrals [phone] Lisa Greenwood APRN [address] [place] [address] Infertility counseling Social History Tobacco Use Types Packs/Day Years Used Date Smoking Tobacco: Never Assessed Sex and Gender Information Value Date Recorded Sex Assigned at Not on file Gender Identity Not on file Sexual Orientation Not on file documented as of this encounter Plan of Treatment Scheduled Referrals Name Type Priority Associated Diagnoses Orde r Schedule Referral to Ob-Medical Insurance Coder Outpatient Referral Routine Infertility counseling Ordered: 08/31/2022 documented as of this encounter Visit Diagnoses Diagnosis Infertility counseling documented in this encounter Care Teams Journal Clerk Relationship Specialty Start Date End Date Lisa Greenwood, PUBLIC RELATIONS COORDINATOR [address] [place] [address] PCP - General Family Medicine 08/31/22 documented as of this encounter
--- OUTSIDE RECORDS SUMMARY | 2024-06-04 10:38 | XMS_ITS | Encounter Summary ---
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 Comments Will remove daily for wound checks and dressing changes. Discuss ROM of the digit as well. Reason for Visit * Reason Comments Finger Injury right middle finger injury partial amputation Encounter Details Date Type Department Care Team (Late st Contact Info) Description 11/06/2009 14:00 EDT Office Visit [facility] Hand & Upper Extremity Program - [address] [phone] Charlie Parisi PA [address] [place] [address] Amputation finger (Primary Dx) Social History Tobacco [...] Type Priority Associated Diagnoses Orde r Schedule AMB CONSULT HAND THERAPY Outpatient Referral Routine Amputation finger Ordered: 11/06/2009 documented as of this encounter Visit Diagnoses Diagnosis 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 HISTORY OF PRESENT ILLNESS: Daryl is seen today for an injury to his right long finger. He hurt it in a wood splitter on the October. He was treated in [facility] with revision amputation in the emergency performed by orthopedic residents. His pain initially was 10/10 but now is about a 2/10. He is taking pain medication for pain relief and he states Vicodin is helping. His mother states that his antibiotics were discontinued on the 5th day which would have been Thursday of this week. Patient states overall he gets tingling sensations on the tip of his finger if it is bumped. He has been in a very large splint for protection since revision amputation. PAST MEDICAL HISTORY: Is negative for chronic disease. SOCIAL HISTORY: Denies alcohol or tobacco use. FAMILY HISTORY: Positive for arthritis. PREVIOUS SURGERIES: None. MEDICATIONS: Ibuprofen and Vicodin. ALLERGIES: None. REVIEW OF SYSTEMS: Is documented in the patient's chart and reviewed prior to examination. OBJECTIVE: Daryl is alert and oriented x3, appropriate in no distress. Examination of the right long finger does show amputation near the distal interphalangeal joint. He has sutures which are intact. The nail has been removed. His range of motion was tested against blocking and he is able to flex the PIP and maybe a little bit of the DIP today. He is hypersensitive on the tip of his finger and has normal capillary refill. There are no signs of infection today. 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 PLAN: I would recommend that Daryl returns weekly until his sutures are ready to be removed. We will place him in a protective dressing today and have him report to therapy for a splint. They will begiven supplies to change his dressing at home either daily or every other day. We discussed signs of infection and they were told to call the office if they had any concerns. Once again I will see him in a week. Electronically Signed by Charlie Parisi PA-C 11/19/2009 13:11 Dictated by: Charlie Parisi PA-C - Charlie Parisi PA-C A - HAILE Job ID: Doc ID: [id number] Ext Doc ID: [id number] cc: documented in this encounter Care Teams Interior Assemblies Installer Relationship Specialty Start Date End Date Ruiz Morley MD PCP - General 07/19/09 documented as of this encounter
--- OUTSIDE RECORDS SUMMARY | 2024-06-04 10:38 | XMS_ITS | Encounter Summary ---
Author Organization [facility] Address [address] [place] [address] Care Team Providers Care Dog Or Horse Racing Official Name Role Phone Ruiz Morley MD Primary Care Provider Un available Encounter Details Date Type Department Care Team (Latest Contact Info) Description 11/06/2009 15:54 EDT - 11/06/2009 23:59 EDT Hospital Encounter [place] [facility] [place] [address] Charlie Parisi PA [address] [place] [address] Discharge Disposition: Home or Self Care Social [...] this encounter Medications at Time of Discharge cephALEXin (KEFLEX) 250 mg capsule Take 1 Cap by mouth 4 times daily. 20 Cap 0 10/30/2009 12/06/2009 hydrocodone-aceta minophen (VICODIN) 5-500 mg per tablet Take 1 Tab by mouth every 4 hours as needed for Pain. 15 Tab 0 10/30/2009 12/06/2009 documented as of this encounter Discharge Disposition Disposition Code Departure Means Destination Home or Self [facility] documented in this encounter Plan of Treatment Not on file documented as of this encounter Visit Diagnoses Not on filedocumented in this encounter Care Teams Dog Or Horse Racing Official Relationship Specialty Start Date End Date Ruiz Morley MD PCP - General 07/19/09 documented as of this encounter
--- OUTSIDE RECORDS SUMMARY | 2024-06-04 10:38 | XMS_ITS | Encounter Summary ---
Author Organization [facility] Address [address] [place] [address] Care Team Providers Care Cutter Finisher Name Role Phone Brian Martinez MD Primary Care Provider Un available Reason for Visit * Reason Comments Hand Injury fingers vs. wood spl itter. R middle here for ORTHO consult Encounter Details Date Type Department Care Team (Late st Contact Info) Description 10/30/2009 12:39 EDT - 10/30/2009 16:58 EDT Emergency [facility] Emergency Department - [facility] [address] [place] [address] Zane Daley MD [address] [facility], Level [address] [place] [phone] Jac Murrieta MD [address] [place] [phone] Amputation, finger, traumatic Discharge Disposition: Home or Self Care Social [...] EDT Inhaled Oxygen Concentration - - Weight 72.6 kg (160 lb) 10/30/2009 1249 EDT Height - - Body Mass Index - - documented in this encounter Discharge Instructions * Discharge Instructions* Zane Daley MD - 10/30/2009 16:27 EDT Discharge instructions as per orthopedic surgery Followup in the orthopedic hand clinic in 5-7 days Medications as instructed Return if symptoms worsen or new symptoms develop * Attachments The following attachments cannot be sent through Care Everywhere. * FINGERTIP AMPUTATION: AFTER YOUR VISIT TO THE EMERGENCY ROOM ([facility]) documented in this encounter Medications at Time of Discharge cephALEXin (KEFLEX) 250 mg capsule Take 1 Cap by mouth 4 times daily. 20 Cap 0 10/30/2009 12/06/2009 hydrocodone-aceta minophen (VICODIN) 5-500 mg per tablet Take 1 Tab by mouth every 4 hours as needed for Pain. 15 Tab 0 10/30/2009 12/06/2009 documented as of this encounter Ordered Prescriptions Prescription Sig Dispense Quantity Refills Last Filled Start Date End Date hydrocodone-acetam inophen (VICODIN) 5-500 mg per tablet Take 1 Tab by mouth every 4 hours as needed for Pain. 15 Tab 0 10/30/2009 12/06/2009 cephALEXin (KEFLEX) 250 mg capsule Take 1 Cap by mouth 4 times daily. 20 Cap 0 10/30/2009 12/06/2009 documented in this encounter Discharge Disposition Disposition Code Departure Means Destination Comment s Home or Self Care Car Home father up to pharmacy to fill prescriptions documented in this encounter ED Notes * Ajay Ybarra, RN - 10/30/2009 1612 EDT Ortho completed repair to finger. Placed in plaster splint * Ajay Ybarra RN - 10/30/2009 1422 EDT Ortho at bedside attending to finger inj * Zane Daley MD - 10/30/2009 2179 EDT DOS: 10/30/2009 Chief Complaint Patient presents with ??? Hand Injury fingers vs. wood splitter. R middle here for ORTHO consult The patient is a 19 y.o. male who presents today with Hand Injury The history is provided by the patient and a parent. Hand Injury The incident occurred 3 to 5 hours ago. The incident occurred at home. The injury mechanism was a direct blow (wood splitter). The pain is present in the right fingers (right middle finger). The painquality is described as throbbing. The pain is severe. The pain has been constant since the incident. Pertinent negatives include no fever and no malaise/fatigue. It is unknown if a foreign body is present. The symptoms are worsened by palpation, use and movement. He has tried immobilization and ice for the symptoms. The treatment provided moderate relief. Review of Systems Constitutional: Negative for fever, chills, malaise/fatigue, diaphoresis and fatigue. HENT: Negative for nosebleeds, rhinorrhea, neck pain, neck stiffness and ear discharge. Eyes: Negative for photophobia and visual disturbance. Respiratory: Negative for chest tightness and shortness of breath. Cardiovascular: Negative for chest pain and palpitations. Gastrointestinal: Negative for nausea, vomiting, abdominal pain and diarrhea. Genitourinary: Negative for dysuria, urgency and frequency. Musculoskeletal: Negative for back pain. Painful right middle finger Skin: Positive for wound (amputation of distal right middle finger). Negative for rash. Neurological: Negative for tremors, syncope and headaches. Hematological: Does not bruise/bleed easily. Psychiatric/Behavioral: Negative for confusion. All other systems reviewed and are negative. No past medical history on file. No past surgical history on file. No Known Allergies History Substance Use Topics ??? Tobacco Use: Not on file ??? Alcohol Use: Not on file Denies cigarette or alcohol No family history on file. Vital Signs Temp: 36 ??C (96.8 ??F) Temp src: Tympanic Pulse: 64 Resp: 16 SpO2: 98 % BP: 115/71 mmHg Physical Exam Nursing note and vitals reviewed. Constitutional: He appears well-developed and well-nourished. No distress. HENT: Head: Normocephalic and atraumatic. Nose: Nose normal. Mouth/Throat: Oropharynx is clear and moist. Eyes: Conjunctivae and extraocular motions are normal. Pupils are equal, round, and reactive to light. Right eye exhibits no discharge. Left eye exhibits no discharge. Neck: Normal range of motion. Neck supple. No tracheal deviation present. Cardiovascular: Normal rate, regular rhythm, normal heart sounds and intact distal pulses. Pulmonary/Chest: Effort normal and breath sounds normal. No respiratory distress. He has no wheezes. Abdominal: Soft. Bowel sounds are normal. No tenderness. Musculoskeletal: Normal range of motion. She presents with an amputation of his right middle finger at the DIP joint Exposed bone is present Neurological: He is alert. He has normal strength. He is not disoriented. No sensory deficit. Skin: Skin is warm and dry. No rash noted. Psychiatric: He has a normal mood and affect. Radiology orders: OUTSIDE CD - PLAIN FILM MSK HAND 3 OR MORE VIEWS OUTSIDE CD - PLAIN FILM MSK (Results Pending) HAND 2 VIEWS (Results Pending) HAND 3 OR MORE VIEWS (Results Pending) Procedures ED Course: The patient is a 19-year-old male who presents from an outside hospital following an injury with a wood splitter. He would split her has amputated his right middle finger at the DIP joint. There is exposed bone present. Patient's history with intravenous antibiotics intravenous pain medicine at an outside hospital prior to sending him to the ER. The patient now presents for further evaluation andtreatment. Orthopedic surgery consulted. Finger repair was performed by orthopedic plastic surgery coordinator X-ray reviewed Patient discharged home with oral antibiotics and oral pain medicine. He will follow up in the handclinic in 5-7 days to return is symptoms worsen or new symptoms develop. Discharge Prescriptions New Prescriptions CEPHALEXIN (KEFLEX) 250 MG CAPSULE Take 1 Cap by mouth 4 times daily. HYDROCODONE-ACETAMINOPHEN (VICODIN) 5-500 MG PER TABLET Take 1 Tab by mouth every 4 hours as neededfor Pain. MDM Number of Diagnoses and Management Options Amputation, finger, traumatic: new, needed workup Amount and/or Complexity of Data Reviewed Tests in the radiology section of CPT??: reviewed Discuss the patient with other providers: yes (Orthopedic surgery consult) Independent visualization of images, tracings, or specimens: yes (X-ray) Risk of Complications, Morbidity, and/or Mortality Presenting problems: high Diagnostic procedures: moderate Management options: moderate General comments: 4 Patient Progress Patient progress: improved Encounter Diagnoses Code Name Primary? Qualifier ??? 886.0H Amputation, finger, traumatic Comment: partial amputation PCP: BRIAN MARTINEZ MD 10/30/2009 4:53 PM * Ajay Ybarra RN - 10/30/2009 1304 EDT Ortho in to see PT * Ajay Ybarra RN - 10/30/2009 1254 EDT Td UTD * Ajay Ybarra RN - 10/30/2009 1252 EDT Was given jonas, jose m and fent. at [facility]. 9%NS infusing * Ajay Ybarra RN - 10/30/2009 1247 EDT Amputation of R middle finger from [facility] did arrive with part to [facility], digit was cleaned and place on ice there * Sue Joe I - 10/30/2009 1218 EDT TCALL: Transfer from [facility] by Dr Mao accepted by Dr Shanks for care of right long finger diagonal amputation. Digit on ice. Last po 0800. NPO since 1010. BP 139/79, p 80, rr 16, temp 37. #[id number] left AC. Tetanus 09, up to date. Rec'd 1g Kefzol, fentanyl. Report from John Bustos taken by Kayla Meeks RN. kij documented in this encounter Miscellaneous Notes * Scanned Note-Null - Inpatient, Physician - 11/01/2009 0743 EDT * Scanned Note-Null - Inpatient, Physician - 11/01/2009 0738 EDT * Scanned Note-Null - Inpatient, Physician - 10/30/20092050 EDT * Scanned Note-Null - Inpatient, Physician - 10/30/20092014 EDT * ED Consult - Sean Hummel MD - 10/30/2009 0000 EDT ED CONSULTATION SERVICE DATE: 10/30/2009 CHIEF COMPLAINT: Right hand injury. HISTORY OF PRESENT ILLNESS: Mr Lawrence is a 19-year-old male who was chopping wood using a wood splitter when he lacerated the middle finger of his right hand. The patient noted immediate pain and bleeding at the site and was able to locate the piece of his middle finger that was cut off at the distal interphalangeal joint. He quickly was taken to hospital at [facility] where the amputated piece of his digit was scrubbed in chlorhexidine and placed on ice. The patient was given 1 gram of Kefzol as well as fentanyl for pain control and subsequently transferred to [facility]. The patient sustained his injury at about 10:30 in the morning and presented to me at [facility] at about 2 p.m. in the afternoon. He complained of pain in the right middle finger and wanted to know whether or not we would be able to attach part of his finger that he had brought with him. He denied any other injuries to his other digits. He stated that he had no chest pain, no shortness of breath, no abdominal or chest discomfort, no headache, no nausea, no vomiting, no troubles with bowel or bladder function. Of note, the patient's tetanus is up to date as of 2008 per his own admission. He lastate food at 8 o'clock in the morning (some chocolate milk) although he had been drinking water up until 10 in the morning. The patient is right-handed. PAST MEDICAL HISTORY: Reviewed. None. PAST SURGICAL HISTORY: Reviewed. None. FAMILY HISTORY: Reviewed, is not pertinent. SOCIAL HISTORY: Patient denies alcohol use, denies smoking. He is a rising senior from [place], [place]. Lives with his parents at home. OBJECTIVE: Vital signs: At arrival patient was afebrile. Blood pressure is 139/79, pulse 80, respiratory rate 16. In general the patient is in no acute distress. Lungs: Breathing nonlabored. Heart: Regular. Skin: Warm and well perfused. Abdomen: Soft, nontender. Right upper extremity: The patient has a laceration of the right middle finger with amputation of the majority of the distal phalanx. The wound is oblique traveling from inferior on the ulnar side to superior on the radial side. It is centered at the level of the DIP joint. The middle phalanx head's cartilaginous surface is exposed. He was intact to sensation by light touch proximal to the wound on the radial and ulnar sides of his middle finger. He is able to both flex and extend the remaining PIP joint. He is intact to sensationthroughout the rest of his hand. He is able to oppose his thumb, flex and extend his thumb interphalangeal joint. PAD and DAB function is intact. He has good medical radiation tech. His radial pulse is 2+. The skin upto the level of the laceration is warm and well perfused with brisk capillary refill. There is no other trauma to his right hand. His bilateral upper extremities and lower extremities have full strength and sensation and are atraumatic. DIAGNOSTIC DATA: Imaging was obtained and shows an open fracture of the right middle finger involving the distal phalanx which is absent except for a small fragment of the base. The middle phalynx appears intact. PROCEDURE: I provided the patient with a digital block using a mixture of 0.25% bupivacaine and 1% lidocaine. I infiltrated 5 mL of this anesthetic into the subcutaneous tissue at the distribution ofboth digital nerves. The patient's wound was thoroughly irrigated with over 1 liter of normal saline and scrubbed with a chlorhexidine and iodine mixture after which it was prepped with Betadine. Using the rongeur I removed the cartilaginous surface of the middle phalanx, I removed the fragment that was remaining of the distal phalynx and I took down a portion of the distal part of the middle phalynx in order to allow for adequate skin coverage. I closed the wound loosely with 4-0 nylon and ensu red that there was brisk capillary refill in the flap which was tacked down from radial to ulnar. The patient tolerated the procedure well. There were no complications. ASSESSMENT AND PLAN: Mr Daryl Lawrence is a 19-year-old gentleman who sustained a partial amputationof his right middle finger which was too distal to allow for reimplantation. I completed the amputation of his distal phalynx and closed the wound. I also ensured that the patient was prescribed an antibiotic to take and he was sent out with cephalexin as well as pain medications per the emergency r oom staff. I instructed the patient regarding wound care and stated that I had closed the wound loosely in order to allow drainage as needed and I told him that he should expect several months of recovery time with the wound taking at least 4 to 6 weeks to heal and that would be followed by a likely need for hand therapy. The patient was understanding of this as was his family. I talked with bothhis mother and father who were present during my initial examination and after I finished the procedure. The patient will follow up in hand clinic in 5 to 7 days. The patient was discussed with Dr Tommy Bear. Dictated by: Sean Hummel MD Sean Hummel MD 09 37 PM / bob Confirmation: [id number] Dictation ID: [id number] cc: Tommy Bear MD documented in this encounter Plan of Treatment Pending Results Name Type Priority Associated Diagnoses Date /Time OUTSIDE CD - PLAIN FILM MSK Imaging 10/30/2009 13:20 EDT documented as of this encounter Procedures Procedure Name Priority Date/Time Associated Diagnosis Comments HAND 3 OR MORE VIEWS 10/30/2009 16:39 EDT documented in this encounter Results * HAND 3 OR MORE VIEWS (10/30/2009 16:39 EDT) Anatomical Region Laterality Modality Other 10/30/2009 16:3 9 EDT 10/30/2009 17:08 EDT Narrative 10/30/2009 17:08 EDT HAND 3 OR MORE VIEWS ??Oct 30, 2009 04:39:00 PM Signs and Symptoms/Comments: ??s/p completion amp off middle finger. Comparisons: October 30, 2009 at 1059 hours. Findings: The examination of the right hand shows a plaster splint in place. There has been amputation of the remaining portions of the distal phalanx of the right 3rd finger. Procedure Note 10/30/2009 HAND 3 OR MORE VIEWS Oct 30, 2009 04:39:00 PM Signs and Symptoms/Comments: s/p completion amp off middle finger. Comparisons: October 30, 2009 at 1059 hours. Findings: The examination of the right hand shows a plaster splint in place. There has been amputation of the remaining portions of the distal phalanx of the right 3rd finger. Sean Hummel MD IMG DIAGNOSTIC IMAGING ORDERABL ES Final Result documented in this encounter Visit Diagnoses Diagnosis Amputation, finger, traumatic Traumatic amputation of other finger(s) (complete) (partial), without mention of complication documented in this encounter Administered Medications Inactive Administered Medications - up to 3 most recent administrations Medication Order MAR Action Action Date Dose Rate Site morphine injection 2 mg 2 mg, intravenous, NOW X1, 1 dose, On Thu10/30/09 at 1445, STAT Given 10/30/2009 14:21 EDT 2 mg documented in this encounter Active and Recently Administered Medications Times are shown in EDT. Scheduled Medication Order 10/28/2009 10/29/2009 10/30/2009 morphine injection 2 mg (COMPLETED) 2 mg, intravenous, NOW X1, 1 dose, On Thu10/30/09 at 1445, STAT 1421 (Given - Provid er: Ajay Ybarra RN) documented in this encounter Orders Medications Ordered That Edvin ht Not Have Been Administered Count Last Ordered Date First Ordered Date morphine 2 mg/mL injection 1 10/30/2009 documented in this encounter Care Teams Cutter Finisher Relationship Specialty Start Date End Date Brian Martinez MD PCP - General 07/19/09 documented as of this encounter
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
--- OUTSIDE RECORDS SUMMARY | 2024-06-04 10:38 | XMS_ITS | Clinical Summary ---
[place] [address] Care Team Providers Care Information Systems Audit Manager Name Role Phone Lisa Greenwood GIMP TACKER Primary Care Provider Social History Tobacco Use Types Packs/Day Years Used Date Smoking Tobacco: Never Assessed Sex and Gender Information Value Date Recorded Sex Assigned at Not on file Gender Identity Not on file Sexual Orientation Not on file Plan of Treatment Health Maintenance Due Date Last Done Comments HIV screen 2010 Hepatitis C Screening 2010 Hepatitis B vaccine (0-59 yrs) (1) 06/24/2011 Tetanus/Diphtheria/Pertussis Vaccines (1 - Tdap) 06/23 Covid-19 Vaccine ( - 2023-25 season) 2023 Influenza (Flu) vaccine (1 o f 1 - Influenza standard series) 12/20/2023 Care Teams Information Systems Audit Manager Relationship Specialty Start Date End Date Lisa Greenwood APRN [address] [place] [address] PCP - General Family Medicine 08/31/22
== END 2024-06-04 10:56 | disposition home or self-care (01) ==
LOC: ER 10:34
PROVIDERS: Emergency Provider Registered Nurse Emergency
DX: H66.91 Otitis media, unspecified, right ear (principal)
CPT/HCPCS: 87426; 99283